=== PATIENT | female | born 1950 | race Caucasian/White ===

== ENCOUNTER 2016-12-17 13:24 | Emergency (ER) | payer MEDICARE, MEDICAID ==
[2016-12-17 13:24] VITALS: BMI 45.0
[2016-12-17 13:47] VITALS: TEMP 98.4
[2016-12-17] MEDS ORDERED: Sodium Chloride 0.9% 1,000 ML IV ONE (14:24)
[2016-12-17] MEDS ORDERED: Albuterol-Ipratrop 3 mg / 0.5 (3 ml) UD INH STA ×3 (14:26→18:02)
--- NOTE | 2016-12-17 15:10 | RAD ---
HISTORY: SOB COMPARISON: Chest x-ray performed 02/13/16 TECHNIQUE: Chest, one view. FINDINGS: Examination limited by habitus. LUNGS: Mild to moderate pulmonary venous congestion. No focal consolidation. Please note that chest x-ray has limited sensitivity for the detection of pulmonary masses. PLEURA: No significant pleural effusion identified. No definite pneumothorax . CARDIOVASCULAR: Cardiomegaly. Since atherosclerotic calcifications of the aorta. OSSEOUS STRUCTURES: Degenerative changes. VISUALIZED UPPER ABDOMEN: Unremarkable. OTHER FINDINGS: None. IMPRESSION: Cardiomegaly. Mild to moderate pulmonary venous congestion.
--- NOTE | 2016-12-17 15:43 | C.PDOC ---
History Of Present Illness Patient is a 66 y/o female, whose past medical history includes asthma, presents to the emergency department for evaluation of shortness of breath associated with productive cough, and bilateral leg swelling for the last 8 days. Notes using nebulizer at home with transient relief. Otherwise, denies any fever, chills, chest pain, palpitations, lightheadedness, headache, dizziness, or any other associated symptoms at this time. Time Seen by Provider: 12/17/16 14:14 Chief Complaint (Nursing): Shortness Of Breath History Per: Patient History/Exam Limitations: no limitations Onset/Duration Of Symptoms: Days (8) Current Symptoms Are (Timing): Still Present Severity: None Pain Scale Rating Of: 0 Associated Symptoms: Productive Cough, Ankle/Leg Swelling. denies: Fever, Chills, Sweating, Chest Pain, Bloody Cough, Heart Racing, Leg/Calf Pain, Dizziness, Light-headedness, Anxiety, Tingling In Hands Or Face, Musle Spasms In Hands Or Feet Recent travel outside of the [place]: No Additional History Per: Patient Past Medical History Reviewed: Historical Data, Nursing Documentation, Vital Signs Vital Signs: Last Vital Signs Temp 98.4 F 12/17/16 18:38 Pulse 93 H 12/17/16 18:38 Resp 22 12/17/16 18:38 BP 134/86 12/17/16 18:38 Pulse Ox 96 12/17/16 18:55 - Medical History PMH: Asthma, Diabetes, HTN, Hypercholesterolemia Denies: Chronic Kidney Disease Surgical History: Appendectomy Family History: States: Unknown Family Hx - Social History Hx Tobacco Use: No (Quit years ago) Hx Alcohol Use: No Hx Substance Use: No - Immunization History Hx Tetanus Toxoid Vaccination: No Hx Influenza Vaccination: Yes Hx Pneumococcal Vaccination: No Review Of Systems Except As Marked, All Systems Reviewed And Found Negative. Constitutional: Negative for: Fever, Chills Cardiovascular: Positive for: Edema (BL leg swelling). Negative for: Chest Pain , Palpitations, Light Headedness Respiratory: Positive for: Cough, Shortness of Breath. Negative for: Hemoptysis , Pleuritic Pain, Sputum Gastrointestinal: Negative for: Nausea, Vomiting Skin: Negative for: Rash Neurological: Negative for: Headache, Dizziness Physical Exam - Physical Exam Appears: Non-toxic, In Acute Distress (mild resp distress), Other (obese) Skin: Normal Color, Warm, Dry Head: Atraumatic, Normacephalic Eye(s): bilateral: Normal Inspection, EOMI Nose: Normal Oral Mucosa: Moist Throat: Normal, No Erythema, No Exudate Neck: Normal ROM, Supple Chest: Symmetrical Cardiovascular: Rhythm Regular, No Murmur Respiratory: No Rales, No Rhonchi, Wheezing (BL) Gastrointestinal/Abdominal: Soft, No Tenderness Extremity: Normal ROM, Pedal Edema (b/l mild), Capillary Refill (< 2 sec.), No Deformity Extremity: Bilateral: Atraumatic Pulses: Left Dorsalis Pedis: Normal, Right Dorsalis Pedis: Normal Neurological/Psych: Oriented x3, Normal Speech ED Course And Treatment - Laboratory Results Result Diagrams: 12/17/16 16:07 12/17/16 16:07 ECG: Interpreted By Me (Dr Huber and me), Viewed By Me ECG Rhythm: Atrial Fibrillation ECG Interpretation: No Changes From Prior (A flutter on previous EKG) Rate From EC O2 Sat by Pulse Oximetry: 96 (on RA) Pulse Ox Interpretation: Normal Progress Note: Blood work, urinalysis, EKG, CXR ordered and reviewed. Patient was given IV fluids, Solu-Medrol, and treated with Albuterol. On reassessment, patient is resting comfortably with wheezing improved. No chest pain, or retractions. Oxygen saturation remains stable. Some wheezing persists. It was recommeneded that be admitted for obs. Pt refused. Pt notes she has treatment at home and feels much better. at bedside noting he will bring her back if symptoms return. Pt was informed this is against medical advise, pt a&o x 3 and understands the risks of deterioration, disability and . Cse discsused with Dr Tavares, agreed upon plan and discharge. Medical Decision Making Medical Decision Making: The patient declines admission, and wishes to leave the Emergency Department. ~ This action is against my medical advice to the patient and the decision was made with informed refusal. The patient was told that admission is necessary and a full explanation of the rationale was given. ~The risks of leaving were explained to the patient and include, but are not limited to, worsening of known or currently unknown conditions, permanent disability and from undiagnosed or untreated conditions ~The patient has the capacity to make this informed decision and understands the clinical situation and my explanation of the risks of leaving. The patient voluntarily accepts these risks, and a signed AMA form documenting our conversation was obtained. The patient was given the opportunity to ask questions and reconsider. ~The patient was encouraged to return to the Emergency Department at any time for further care. Disposition - Disposition Referrals: Jh Jolley MD [Staff Provider] - Disposition: HOME/ ROUTINE Disposition Time: 17:36 Condition: STABLE Additional Instructions: Vaya a lawler mdico o la clnica en 2-5 calles sin falta, para mas evaluacin. [place] los medicamentos jose indicado. Volver a la tran de emergencia en cualquier momento si los sntomas persisten o empeoran. Prescriptions: Albuterol 0.083% [Albuterol 0.083% Inhal Destinee (2.5 mg/3 ml) UD] 2.5 mg IH Q6 PRN #20 neb PRN Reason: Shortness Of Breath Methylprednisolone [Medrol Dose Pack (21 tabs)] 4 mg PO DAILY #21 mg Instructions: Asthma (ED) Forms: (AMA) Informed Refusal Print Language: KHMER - Clinical Impression Clinical Impression: Exacerbation of asthma - PA / METAL POURER / Resident Statement MD/DO has reviewed & agrees with the documentation as recorded. - Scribe Statement The provider has reviewed the documentation as recorded by the Steveibkady Francisco All medical record entries made by the Scribe were at my direction and personally dictated by me. I have reviewed the chart and agree that the record accurately reflects my personal performance of the history, physical exam, medical decision making, and the department course for this patient. I have also personally directed, reviewed, and agree with the discharge instructions and disposition.
[2016-12-17] MEDS ORDERED: Albuterol-Ipratrop 3 mg / 0.5 (3 ml) UD ONE ×4 (16:08→17:51)
[2016-12-17] MEDS ORDERED: Sodium Chloride 0.9% 1,000 ML ONE (16:09)
[2016-12-17 16:14] LABS: BASO # 0.1 K/uL (0.0-0.2); BASO % 0.7 % (0.0-2.0); EOS # 1.6 K/uL (0.0-0.7); EOS % 14.4 % (0.0-4.0); HEMOGLOBIN 10.9 g/dL (11.0-16.0); LYMPH # 2.5 K/uL (1.0-4.3); LYMPH % 23.2 % (20.0-40.0); MEAN CELL VOLUME 80.1 fL (81.0-99.0); MEAN CORPUSCULAR HEMOGLOBIN 24.7 pg (27.0-31.0); MEAN CORPUSCULAR HGB CONC 30.8 g/dL (33.0-37.0); MEAN PLATELET VOLUME 7.9 fL (7.2-11.7); MONO # 0.6 K/uL (0.0-0.8); NEUT % 55.7 % (50.0-75.0); NRBC % 0.1 % (0.0-2.0); RBC 4.42 Mil/uL (3.80-5.20); RED CELL DISTRIBUTION WIDTH 16.6 % (11.5-14.5); WHITE BLOOD COUNT 10.8 K/uL (4.8-10.8)
[2016-12-17 16:22] LABS: ALBUMIN 3.2 g/dL (3.5-5.0)
[2016-12-17 16:25] LABS: AST/SGOT 15 U/L (14-36); GFR AFRICAN-AMERICAN > 60; GFR NON-AFRICAN AMERICAN > 60
[2016-12-17 16:26] LABS: ALB/GLOB RATIO 0.9 (1.0-2.1); ALT/SGPT 17 U/L (9-52); BLOOD UREA NITROGEN 17 mg/dL (7-17); CALCIUM 8.7 mg/dl (8.6-10.4)
[2016-12-17 16:34] LABS: B-TYPE NATRIURETIC PEPTIDE 453 pg/mL (0-900); CK-MB 0.42 ng/mL (0.0-3.38)
[2016-12-17 18:40] VITALS: BP 134/86; PULSE 93; RESP 22
[2016-12-17 18:56] VITALS: O2SAT 96
--- NOTE | 2016-12-18 12:59 | CARD ---
APPROVED REPORT EKG Measurement Heart [id number] <Conclusion> Atrial fibrillation Nonspecific ST and T wave abnormality Abnormal ECG
== END 2016-12-17 18:43 | disposition home or self-care (01) ==
LOC: C.ER 13:24
DX: J45.901 Unspecified asthma with (acute) exacerbation (principal); Z87.891 Personal history of nicotine dependence
CPT/HCPCS: 71010; 80053; 82550; 82553; 83880; 84484; 85025; 93005; 94150; 94640; 96361; 96374; 99284; J2930; J7040

== ENCOUNTER 2017-03-22 18:06 | Inpatient (IN) | payer MEDICARE, MEDICAID ==
[2017-03-22 18:06] VITALS: BMI 45.0
[2017-03-22] MEDS ORDERED: Albuterol-Ipratrop 3 mg / 0.5 (3 ml) UD ONE (18:20)
[2017-03-22] MEDS ORDERED: Albuterol 0.083% Inhal Sol (2.5 mg/3 mL) UD INH STA ×2 (20:07→21:22)
--- NOTE | 2017-03-22 20:11 | C.PDOC ---
History Of Present Illness 66 year old female with prior Hx of asthma and diabetes presents to the ED with complaints of trouble breathing that have been occurring approximately for 7 days.Patient is currently taking medication for asthma and HTN. Patient states trying her asthma medication three time A P MANAGER with no success. She states having a cough, with little phlegm associated with her breathing problems. Patient denies fever, nausea, vomit, CP, or known sick contacts. PMD : Shola Bae Time Seen by Provider: 03/22/17 19:45 Chief Complaint (Nursing): Shortness Of Breath History Per: Patient History/Exam Limitations: no limitations Onset/Duration Of Symptoms: Days Current Symptoms Are (Timing): Still Present Initiating Event: Aspiration Quality: "Pain" Current Respiratory Medications: Albuterol Associated Symptoms: Productive Cough (Mild), Ankle/Leg Swelling. denies: Fever , Chills, Chest Pain, Dizziness Recent travel outside of the [place]: No Additional History Per: Patient Past Medical History Reviewed: Historical Data, Nursing Documentation, Vital Signs Vital Signs: Last Vital Signs Temp 97.9 F 03/22/17 18:30 Pulse 84 03/22/17 23:11 Resp 17 03/22/17 23:11 BP 140/80 03/22/17 23:11 Pulse Ox 96 03/22/17 23:11 - Medical History PMH: Asthma, Bronchitis, Diabetes, HTN, Hypercholesterolemia Denies: Chronic Kidney Disease Surgical History: Appendectomy Family History: States: Unknown Family Hx - Social History Hx Tobacco Use: No (Quit years ago) Hx Alcohol Use: No Hx Substance Use: No - Immunization History Hx Tetanus Toxoid Vaccination: No Hx Influenza Vaccination: Yes Hx Pneumococcal Vaccination: No Review Of Systems Constitutional: Negative for: Fever, Chills Cardiovascular: Negative for: Chest Pain Respiratory: Positive for: Cough, Shortness of Breath Gastrointestinal: Negative for: Nausea, Vomiting, Abdominal Pain Neurological: Negative for: Weakness, Numbness Physical Exam - Physical Exam Appears: Non-toxic, In Acute Distress (Mild respiratory, speaking partial sentences) Skin: Normal Color, Warm, Dry Head: Atraumatic, Normacephalic Oral Mucosa: Moist Neck: Normal, Supple Chest: Symmetrical Cardiovascular: No Murmur, Other (Resting tachycardia) Respiratory: No Wheezing (Diffuse inspiratory and expiratory), Other (Good air movement) Gastrointestinal/Abdominal: Bowel Sounds, Soft, No Tenderness Back: Normal Inspection Extremity: Normal ROM, Pedal Edema, Capillary Refill (less than 2 seconds), No Deformity Pulses: Left Radial: Normal, Right Radial: Normal, Left Dorsalis Pedis: Normal, Right Dorsalis Pedis: Normal Neurological/Psych: Oriented x3, Normal Speech, Normal Cognition Gait: Steady ED Course And Treatment - Laboratory Results Result Diagrams: 03/22/17 20:22 03/22/17 20:22 ECG: Interpreted By Me, Viewed By Me ECG Rhythm: Atrial Fibrillation ECG Interpretation: No Acute Changes Interpretation Of ECG: No acute ST-T changes, no old EKG for comparisson. Rate From EC O2 Sat by Pulse Oximetry: 95 (On RA) Medical Decision Making Medical Decision Making: Impression : 66 y/o female with prior Hx of asthma, diabetes and HTN. Plan : * EKG ordered * CXR ordered * Albuterol, Prednisone, IV fluids administered * Peak flow Pre/Post TX ordered Asthma vs Pneumonia vs CHF. Patient was given nebulizer, steriods, will check blood work, CXR and reevaluate. Disposition - Disposition Disposition: HOSPITALIZED Disposition Time: 22:37 Condition: FAIR - POA Present On Arrival: None - Clinical Impression Clinical Impression: Asthma exacerbation - Scribe Statement The provider has reviewed the documentation as recorded by the Scribe Dave Aparicio All medical record entries made by the Scribe were at my direction and personally dictated by me. I have reviewed the chart and agree that the record accurately reflects my personal performance of the history, physical exam, medical decision making, and the department course for this patient. I have also personally directed, reviewed, and agree with the discharge instructions and disposition.
[2017-03-22 20:26] LABS: BASO % 0.4 % (0.0-2.0); EOS # 0.5 K/uL (0.0-0.7); HEMATOCRIT 37.8 % (34.0-47.0); LYMPH # 2.6 K/uL (1.0-4.3); LYMPH % 29.2 % (20.0-40.0); MEAN CELL VOLUME 80.1 fL (81.0-99.0); MEAN CORPUSCULAR HEMOGLOBIN 25.1 pg (27.0-31.0); MEAN CORPUSCULAR HGB CONC 31.4 g/dL (33.0-37.0); MEAN PLATELET VOLUME 7.4 fL (7.2-11.7); MONO # 0.6 K/uL (0.0-0.8); MONO % 6.5 % (0.0-10.0); WHITE BLOOD COUNT 8.9 K/uL (4.8-10.8)
[2017-03-22] MEDS ORDERED: Albuterol 0.083% Inhal Sol (2.5 mg/3 mL) UD ONE ×2 (20:29→21:34)
[2017-03-22 20:35] LABS: CHLORIDE 100 mmol/L (98-107); SODIUM 134 mmol/L (132-148)
[2017-03-22 20:36] LABS: POTASSIUM 4.2 mmol/L (3.6-5.2)
[2017-03-22 20:38] LABS: ALB/GLOB RATIO 1.1 (1.0-2.1); ALKALINE PHOSPHATASE 80 U/L (38-126); AST/SGOT 15 U/L (14-36); BILIRUBIN,TOTAL 0.5 mg/dL (0.2-1.3); BLOOD UREA NITROGEN 18 mg/dL (7-17); CARBON DIOXIDE 24 mmol/L (22-30); GFR AFRICAN-AMERICAN > 60; GLUCOSE,RANDOM 111 mg/dL (65-105); TOTAL PROTEIN 7.4 g/dL (6.3-8.3)
[2017-03-22 20:39] LABS: ALT/SGPT 22 U/L (9-52); CALCIUM 9.2 mg/dl (8.6-10.4)
--- NOTE | 2017-03-22 23:05 | CP.PCM.HP ---
Addendum entered and electronically signed by Dagmar Orourke DO 03/22/17 23:40: pharmacy does not have levoquin Patient placed on Rocephin 1 gm IV QD and Azithromycin 500mg IV QD Original Note: History of Present Illness - History of Present Illness History of Present Illness: History and physical for Frances 66F presents with asthma exacerbation which began 7 days ago associated with phelgm production. Patient states she has been hospitalized in the past for the same symptoms. Patient stated she's tried her home medication for asthma, but it did not help. Patient denies Fever, chills, chest pain. Patient denies sick contacts. Patient states she feels a little bit better since arriving to ER. PMH: HTN, DM PSH: peritonitis, , hernia repair Social history: smoker for 9 years 1 cigarette every 2 days. no alcohol or illicit drugs Allergies: pollen Present on Admission - Present on Admission Any Indicators Present on Admission: No History of DVT/PE: No History of Uncontrolled Diabetes: No Urinary Catheter: No Decubitus Ulcer Present: No Past Patient History - Infectious Disease Hx of Infectious Diseases: None - Past Medical History & Family History Past Medical History?: Yes - Past Social History Smoking Status: Former Smoker - CARDIAC Hx Hypercholesterolemia: Yes Hx Hypertension: Yes - PULMONARY Hx Asthma: Yes Hx Bronchitis: Yes - NEUROLOGICAL Hx Neurological Disorder: No - HEENT Hx HEENT Problems: No - RENAL Hx Chronic Kidney Disease: No - ENDOCRINE/METABOLIC Hx Endocrine Disorders: Yes Hx Diabetes Mellitus Type 2: Yes - HEMATOLOGICAL/ONCOLOGICAL Hx Blood Disorders: No - INTEGUMENTARY Hx Dermatological Problems: No - MUSCULOSKELETAL/RHEUMATOLOGICAL Hx Musculoskeletal Disorders: No - GASTROINTESTINAL Hx Gastrointestinal Disorders: Yes Other/Comment: peritonitis - GENITOURINARY/GYNECOLOGICAL Hx Genitourinary Disorders: No - PSYCHIATRIC Hx Substance Use: No - SURGICAL HISTORY Hx Appendectomy: Yes - ANESTHESIA Hx Anesthesia: Yes Hx Anesthesia Reactions: No Hx Malignant Hyperthermia: No Meds Allergies/Adverse Reactions: Allergies Allergy/AdvReac Type Severity Reaction Status Date / Time pollen Allergy SHORTNESS Uncoded 03/22/17 18:28 OF BREATH Physical Exam - Constitutional Appears: Non-toxic - Head Exam Head Exam: NORMAL INSPECTION - Eye Exam Eye Exam: EOMI, Normal appearance - ENT Exam ENT Exam: Mucous Membranes Moist - Neck Exam Neck exam: Positive for: Full Rom - Respiratory Exam Respiratory Exam: Accessory Muscle Use, Decreased Breath Sounds, Respiratory Distress - Cardiovascular Exam Cardiovascular Exam: REGULAR RHYTHM, +S1, +S2. absent: Bradycardia, Tachycardia - GI/Abdominal Exam GI & Abdominal Exam: Soft. absent: Tenderness Additional comments: Patient has scars from previous surgeries - Extremities Exam Extremities exam: Positive for: full ROM, pedal edema Additional comments: pain in left foot. Pulses palpable (DP and PT bilaterally 2+) Full ROM bilaterally Results - Vital Signs Recent Vital Signs: Last Vital Signs Temp 97.9 F 03/22/17 18:30 Pulse 99 H 03/22/17 18:30 Resp 26 H 03/22/17 18:33 BP 139/89 03/22/17 18:30 Pulse Ox 95 03/22/17 22:38 - Labs Result Diagrams: 03/22/17 20:22 03/22/17 20:22 Labs: Laboratory Results - last 24 hr 03/22/17 03/22/17 20:22 20:22 WBC 8.9 RBC 4.72 Hgb 11.9 Hct 37.8 MCV 80.1 L MCH 25.1 L MCHC 31.4 L RDW 16.0 H Plt Count 240 MPV 7.4 Neut % (Auto) 57.9 Lymph % (Auto) 29.2 [place] % (Auto) 6.5 Eos % (Auto) 6.0 H Baso % (Auto) 0.4 Neut # 5.1 Lymph # 2.6 [place] # 0.6 Eos # 0.5 Baso # 0.0 Sodium 134 Potassium 4.2 Chloride 100 Carbon Dioxide 24 Anion Gap 14 BUN 18 H Creatinine 0.9 Est GFR ( Amer) > 60 Est GFR (Non-Af Amer) > 60 Random Glucose 111 H Calcium 9.2 Total Bilirubin 0.5 AST 15 ALT 22 Alkaline Phosphatase 80 Troponin I < 0.0120 NT-Pro-B Natriuret Pep 517 Total Protein 7.4 Albumin 3.9 Globulin 3.6 Albumin/Globulin Ratio 1.1 Assessment & Plan - Assessment and Plan (Free Text) Assessment: asthma exacerbation Levoquin 750 IVQD Duoneb Q4H JB Duoneb Q2H PRN HTN continue home medication Diabetes Low dose SS ACHS Accuchecks Prophylaxis Protonix 50mg POQD Lovenox 40mg IV QD diet: carb consistent diabetic diet discussed with Dr. Frances Orourke DO PGY1 - Date & Time Date: 03/22/17 Time: 23:06
[2017-03-22] MEDS ORDERED: Glucagon Recombinant 1 mg Inj IM PRN ×2 (23:11→23:34)
[2017-03-22] MEDS ORDERED: Dextrose 50% SYRINGE Inj (50 ml) IVP PRN ×2 (23:11→23:34)
[2017-03-22] MEDS ORDERED: Albuterol 0.083% Inhal Sol (2.5 mg/3 mL) UD INH PRN (23:11)
[2017-03-22] MEDS: Sodium Chloride 0.9% 1,000 ML IV SCH (23:30)
[2017-03-23] MEDS: MethylPREDNISolone 40 mg Vial IVP SCH ×3 (00:13→22:41)
[2017-03-23] MEDS ORDERED: MethylPREDNISolone 40 mg Vial ONE (00:16)
[2017-03-23] MEDS: Albuterol-Ipratrop 3 mg / 0.5 (3 ml) UD INH SCH ×7 (00:18→23:35)
[2017-03-23] MEDS ORDERED: Albuterol-Ipratrop 3 mg / 0.5 (3 ml) UD ONE (00:21)
[2017-03-23] MEDS: guaiFENesin 100 mg/5 ml Syrup UD PO PRN (03:00)
[2017-03-23 07:25] LABS: BASO % 0.2 % (0.0-2.0); EOS % 0.1 % (0.0-4.0); HEMATOCRIT 35.9 % (34.0-47.0); LYMPH # 1.6 K/uL (1.0-4.3); LYMPH % 23.9 % (20.0-40.0); MEAN CELL VOLUME 80.1 fL (81.0-99.0); MEAN CORPUSCULAR HEMOGLOBIN 25.6 pg (27.0-31.0); MEAN CORPUSCULAR HGB CONC 31.9 g/dL (33.0-37.0); MONO # 0.1 K/uL (0.0-0.8); MONO % 1.3 % (0.0-10.0); RED CELL DISTRIBUTION WIDTH 15.8 % (11.5-14.5); WHITE BLOOD COUNT 6.9 K/uL (4.8-10.8)
[2017-03-23 08:07] LABS: CHLORIDE 100 mmol/L (98-107); POTASSIUM 4.7 mmol/L (3.6-5.2); SODIUM 133 mmol/L (132-148)
[2017-03-23 08:09] LABS: AST/SGOT 14 U/L (14-36); BILIRUBIN,TOTAL 0.4 mg/dL (0.2-1.3); CARBON DIOXIDE 25 mmol/L (22-30); GFR AFRICAN-AMERICAN > 60; TOTAL PROTEIN 7.2 g/dL (6.3-8.3)
[2017-03-23 08:10] VITALS: RESP 20
[2017-03-23 08:10] LABS: ALKALINE PHOSPHATASE 76 U/L (38-126); ALT/SGPT 21 U/L (9-52); BLOOD UREA NITROGEN 17 mg/dL (7-17); CALCIUM 9.1 mg/dl (8.6-10.4); GLUCOSE,RANDOM 163 mg/dL (65-105); MAGNESIUM 1.3 mg/dL (1.6-2.3); PHOSPHOROUS 3.9 mg/dL (2.5-4.5)
[2017-03-23] MEDS: (Novolog) Insulin Aspart, Recombinant 100 u/ml 10 ml vial SC SCH ×4 (08:35→21:46)
[2017-03-23] MEDS: cefTRIAXone IV 1 gm in Dextros 50 ML IVPB SCH (11:36)
[2017-03-23] MEDS: Pantoprazole 40 mg EC Tab PO SCH (11:48)
[2017-03-23] MEDS: Sodium Chloride 0.9% 1,000 ML IV SCH ×2 (11:49→19:15)
[2017-03-23] MEDS: Azithromycin 500 MG in Sodium Chloride 0.9% 250 ML IVPB SCH (11:50)
--- NOTE | 2017-03-23 15:06 | RAD ---
PROCEDURE: CHEST RADIOGRAPH, 1 VIEW HISTORY: SOB COMPARISON: Comparison chest 12/17/2016 FINDINGS: LUNGS: The lung bases are poorly seen likely due to underpenetration and large body habitus. Suspect mild bibasilar atelectasis. PLEURA: No pneumothorax or pleural fluid seen. CARDIOVASCULAR: Heart appears enlarged. OSSEOUS STRUCTURES: Mild multilevel degenerative spondylosis of the thoracic spine VISUALIZED UPPER ABDOMEN: Normal. OTHER FINDINGS: None. IMPRESSION: The lung bases are poorly seen likely due to underpenetration and large body habitus. Suspect mild bibasilar atelectasis.
[2017-03-23] MEDS: Magnesium Sulfate 1 gm in D5W 1 GM/100 ML BAG IVPB SCH ×2 (21:35→22:42)
--- NOTE | 2017-03-23 22:52 | CP.PCM.HP ---
History of Present Illness - History of Present Illness History of Present Illness: CC: shortness of breath 66F presents with asthma exacerbation which began 7 days ago associated with phelgm production. Patient states she has been hospitalized in the past for the same symptoms. Patient stated she's tried her home medication for asthma, but it did not help. Patient denies Fever, chills, chest pain. Patient denies sick contacts. Patient states she feels a little bit better since arriving to ER. PMH: HTN, DM PSH: peritonitis, , hernia repair Social history: smoker for 9 years 1 cigarette every 2 days. no alcohol or illicit drugs Allergies: pollen Present on Admission - Present on Admission Any Indicators Present on Admission: No Past Patient History - Infectious Disease Hx of Infectious Diseases: None - Past Medical History & Family History Past Medical History?: Yes - Past Social History Smoking Status: Never Smoked - CARDIAC Hx Hypercholesterolemia: Yes Hx Hypertension: Yes - PULMONARY Hx Asthma: Yes Hx Bronchitis: Yes - NEUROLOGICAL Hx Neurological Disorder: No - HEENT Hx HEENT Problems: No - RENAL Hx Chronic Kidney Disease: No - ENDOCRINE/METABOLIC Hx Endocrine Disorders: Yes Hx Diabetes Mellitus Type 2: Yes - HEMATOLOGICAL/ONCOLOGICAL Hx Blood Disorders: No - INTEGUMENTARY Hx Dermatological Problems: No - MUSCULOSKELETAL/RHEUMATOLOGICAL Hx Falls: No - GASTROINTESTINAL Hx Gastrointestinal Disorders: Yes Other/Comment: peritonitis - GENITOURINARY/GYNECOLOGICAL Hx Genitourinary Disorders: No - PSYCHIATRIC Hx Substance Use: No - SURGICAL HISTORY Hx Appendectomy: Yes Other/Comment: no further information added by patient. - ANESTHESIA Hx Anesthesia: Yes Hx Anesthesia Reactions: No Hx Malignant Hyperthermia: No Meds Allergies/Adverse Reactions: Allergies Allergy/AdvReac Type Severity Reaction Status Date / Time pollen Allergy SHORTNESS Uncoded 03/22/17 18:28 OF BREATH Results - Vital Signs Recent Vital Signs: Last Vital Signs Temp 97.8 F 03/23/17 15:32 Pulse 96 H 03/23/17 15:32 Resp 20 03/23/17 15:32 BP 133/78 03/23/17 17:56 Pulse Ox 97 03/23/17 15:32 - Labs Result Diagrams: 03/24/17 08:43 03/24/17 08:43 Labs: Laboratory Results - last 24 hr 03/23/17 03/23/17 03/23/17 02:36 06:59 07:17 WBC 6.9 RBC 4.48 Hgb 11.4 Hct 35.9 MCV 80.1 L MCH 25.6 L MCHC 31.9 L RDW 15.8 H Plt Count 236 MPV 8.0 Neut % (Auto) 74.5 Lymph % (Auto) 23.9 [place] % (Auto) 1.3 Eos % (Auto) 0.1 Baso % (Auto) 0.2 Neut # 5.1 Lymph # 1.6 [place] # 0.1 Eos # 0.0 Baso # 0.0 Sodium Potassium Chloride Carbon Dioxide Anion Gap BUN Creatinine Est GFR ( Amer) Est GFR (Non-Af Amer) POC Glucose (mg/dL) 226 H 183 H Random Glucose Calcium Phosphorus Magnesium Total Bilirubin AST ALT Alkaline Phosphatase Total Protein Albumin Globulin Albumin/Globulin Ratio 03/23/17 03/23/17 03/23/17 07:17 11:35 17:47 WBC RBC Hgb Hct MCV MCH MCHC RDW Plt Count MPV Neut % (Auto) Lymph % (Auto) [place] % (Auto) Eos % (Auto) Baso % (Auto) Neut # Lymph # [place] # Eos # Baso # Sodium 133 Potassium 4.7 Chloride 100 Carbon Dioxide 25 Anion Gap 14 BUN 17 Creatinine 0.8 Est GFR ( Amer) > 60 Est GFR (Non-Af Amer) > 60 POC Glucose (mg/dL) 221 H 181 H Random Glucose 163 H Calcium 9.1 Phosphorus 3.9 Magnesium 1.3 L Total Bilirubin 0.4 AST 14 ALT 21 Alkaline Phosphatase 76 Total Protein 7.2 Albumin 3.7 Globulin 3.5 Albumin/Globulin Ratio 1.0 03/23/17 21:43 WBC RBC Hgb Hct MCV MCH MCHC RDW Plt Count MPV Neut % (Auto) Lymph % (Auto) [place] % (Auto) Eos % (Auto) Baso % (Auto) Neut # Lymph # [place] # Eos # Baso # Sodium Potassium Chloride Carbon Dioxide Anion Gap BUN Creatinine Est GFR ( Amer) Est GFR (Non-Af Amer) POC Glucose (mg/dL) 169 H Random Glucose Calcium Phosphorus Magnesium Total Bilirubin AST ALT Alkaline Phosphatase Total Protein Albumin Globulin Albumin/Globulin Ratio
[2017-03-24] MEDS: Magnesium Sulfate 1 gm in D5W 1 GM/100 ML BAG IVPB SCH ×2 (00:01)
[2017-03-24] MEDS: Sodium Chloride 0.9% 1,000 ML IV SCH ×2 (00:02→05:20)
[2017-03-24] MEDS: Albuterol-Ipratrop 3 mg / 0.5 (3 ml) UD INH SCH ×6 (03:05→23:34)
[2017-03-24] MEDS: guaiFENesin 100 mg/5 ml Syrup UD PO PRN (05:46)
[2017-03-24] MEDS: (Novolog) Insulin Aspart, Recombinant 100 u/ml 10 ml vial SC SCH ×4 (07:56→22:02)
[2017-03-24 08:52] LABS: BASO % 0.1 % (0.0-2.0); EOS % 0.1 % (0.0-4.0); HEMATOCRIT 34.1 % (34.0-47.0); LYMPH % 16.4 % (20.0-40.0); MEAN CELL VOLUME 80.5 fL (81.0-99.0); MEAN PLATELET VOLUME 8.3 fL (7.2-11.7); MONO # 0.3 K/uL (0.0-0.8); MONO % 2.8 % (0.0-10.0); NRBC % 0.1 % (0.0-2.0); RED CELL DISTRIBUTION WIDTH 16.1 % (11.5-14.5)
[2017-03-24 08:57] LABS: WHITE BLOOD COUNT 12.2 K/uL (4.8-10.8)
[2017-03-24 09:19] LABS: CHLORIDE 98 mmol/L (98-107); POTASSIUM 4.9 mmol/L (3.6-5.2); SODIUM 132 mmol/L (132-148)
[2017-03-24 09:21] LABS: AST/SGOT 10 U/L (14-36); BILIRUBIN,TOTAL 0.4 mg/dL (0.2-1.3); CARBON DIOXIDE 23 mmol/L (22-30); GFR AFRICAN-AMERICAN > 60; TOTAL PROTEIN 6.8 g/dL (6.3-8.3)
[2017-03-24 09:22] LABS: ALKALINE PHOSPHATASE 67 U/L (38-126); BLOOD UREA NITROGEN 24 mg/dL (7-17); GLUCOSE,RANDOM 202 mg/dL (65-105); PHOSPHOROUS 3.9 mg/dL (2.5-4.5)
[2017-03-24 09:23] LABS: ALT/SGPT 16 U/L (9-52); CALCIUM 8.7 mg/dl (8.6-10.4); MAGNESIUM 2.1 mg/dL (1.6-2.3)
[2017-03-24] MEDS: guaiFENesin DM 100 mg-10 mg/5 ml UD PO PRN ×2 (09:26→14:03)
[2017-03-24] MEDS: Pantoprazole 40 mg EC Tab PO SCH (09:27)
[2017-03-24] MEDS: cefTRIAXone IV 1 gm in Dextros 50 ML IVPB SCH (09:32)
[2017-03-24] MEDS: Azithromycin 500 MG in Sodium Chloride 0.9% 250 ML IVPB SCH (09:33)
[2017-03-24] MEDS: Fluticasone Nasal 50 mcg/Spray NS SCH (11:00)
[2017-03-24] MEDS: MethylPREDNISolone 40 mg Vial IVP SCH (12:30)
--- NOTE | 2017-03-24 21:07 | CP.PCM.PN ---
Subjective - Date & Time of Evaluation Date of Evaluation: 03/24/17 Time of Evaluation: 16:25 - Subjective Subjective: Pt seen and evalauted at bedside, he denies any nausea, vomiting, no fever. Pt is less short of breath, less coughing,, less wheezing Objective - Vital Signs/Intake and Output Vital Signs (last 24 hours): Temp Pulse Resp BP Pulse Ox 97.6 F 99 H 20 143/100 H 96 03/24/17 15:23 03/24/17 15:23 03/24/17 15:23 03/24/17 18:19 03/24/17 15:23 - Medications Medications: Current Medications Acetaminophen (Tylenol 325mg Tab) 650 mg PO Q6 PRN PRN Reason: Fever >100.4 F Albuterol Sulfate (Albuterol 0.083% Inhal Destinee (2.5 Mg/3 Ml) Ud) 3 mg INH RQ2 PRN PRN Reason: Shortness of Breath Albuterol/Ipratropium (Duoneb 3 Mg/0.5 Mg (3 Ml) Ud) 3 ml INH RQ4 JB Last Admin: 03/24/17 19:52 Dose: 3 ml Carvedilol (Coreg) 25 mg PO BID JB Last Admin: 03/24/17 18:19 Dose: 25 mg Dextrose (Dextrose 50% Inj) 0 ml IVP .STAT PRN; Protocol PRN Reason: Hypoglycemia Protocol Dextrose (Glutose 15) 0 gm PO .ONCE PRN; Protocol PRN Reason: Hypoglycemia Protocol Fluticasone Propionate (Flonase) 2 spr NS DAILY JB Last Admin: 03/24/17 11:00 Dose: 2 spr Glimepiride (Amaryl) 1 mg PO DAILY JB Last Admin: 03/24/17 09:33 Dose: 1 mg Glucagon (Glucagen Diagnostic Kit) 0 mg IM .STAT PRN; Protocol PRN Reason: Hypoglycemia Protocol Guaifenesin (Robitussin) 100 mg PO Q4H PRN PRN Reason: Cough Last Admin: 03/24/17 05:46 Dose: 100 mg Guaifenesin/Dextromethorphan (Robitussin Dm) 5 ml PO Q4H PRN PRN Reason: Cough Last Admin: 03/24/17 14:03 Dose: 5 ml Heparin Sodium (Porcine) (Heparin) 5,000 units SC Q12 JB Last Admin: 03/24/17 09:27 Dose: 5,000 units Azithromycin 500 mg/ Sodium (Chloride) 250 mls @ 250 mls/hr IVPB DAILY [facility] Last Admin: 03/24/17 09:33 Dose: 250 mls/hr Ceftriaxone Sodium (Rocephin Iv 1 Gm Duplex) 50 mls @ 100 mls/hr IVPB DAILY [facility] Last Admin: 03/24/17 09:32 Dose: 100 mls/hr Insulin Aspart (Novolog) 0 unit SC ACHS [facility] PRN Reason: Protocol Last Admin: 03/24/17 18:00 Dose: Not Given Metformin HCl (Glucophage) 1,000 mg PO BID [facility] Last Admin: 03/24/17 18:20 Dose: 1,000 mg Methylprednisolone (Solu-Medrol) 60 mg IVP DAILY [facility] Montelukast Sodium (Singulair) 10 mg PO HS [facility] Last Admin: 03/23/17 21:35 Dose: 10 mg Pantoprazole Sodium (Protonix Ec Tab) 40 mg PO DAILY [facility] Last Admin: 03/24/17 09:27 Dose: 40 mg Rosuvastatin Calcium (Crestor) 10 mg PO HS [facility] Last Admin: 03/23/17 21:35 Dose: 10 mg - Labs Labs: 03/24/17 08:43 03/24/17 08:43 - Constitutional Appears: No Acute Distress - Head Exam Head Exam: ATRAUMATIC, NORMAL INSPECTION, NORMOCEPHALIC - Eye Exam Eye Exam: EOMI, Normal appearance, PERRL Pupil Exam: NORMAL ACCOMODATION, PERRL - Respiratory Exam Respiratory Exam: Decreased Breath Sounds, Rales, Rhonchi, Wheezes - Cardiovascular Exam Cardiovascular Exam: REGULAR RHYTHM, +S1, +S2. absent: Murmur - GI/Abdominal Exam GI & Abdominal Exam: Soft, Normal Bowel Sounds. absent: Tenderness - Neurological Exam Neurological Exam: Alert, Awake, CN II-XII Intact, Normal Gait, Oriented x3 - Psychiatric Exam Psychiatric exam: Normal Affect, Normal Mood Assessment and Plan (1) Asthma exacerbation Status: Acute (2) Bronchitis Status: Acute
[2017-03-25] MEDS: guaiFENesin 100 mg/5 ml Syrup UD PO PRN (02:10)
[2017-03-25] MEDS: Albuterol-Ipratrop 3 mg / 0.5 (3 ml) UD INH SCH ×3 (03:07→13:23)
[2017-03-25 07:56] LABS: BASO % 0.2 % (0.0-2.0); EOS % 0.3 % (0.0-4.0); LYMPH # 3.1 K/uL (1.0-4.3); LYMPH % 21.3 % (20.0-40.0); MEAN CORPUSCULAR HEMOGLOBIN 24.9 pg (27.0-31.0); MEAN CORPUSCULAR HGB CONC 31.2 g/dL (33.0-37.0); MEAN PLATELET VOLUME 7.9 fL (7.2-11.7); MONO # 0.9 K/uL (0.0-0.8); MONO % 6.3 % (0.0-10.0); RED CELL DISTRIBUTION WIDTH 16.2 % (11.5-14.5); WHITE BLOOD COUNT 14.5 K/uL (4.8-10.8)
[2017-03-25 08:12] LABS: CHLORIDE 98 mmol/L (98-107)
[2017-03-25 08:13] LABS: POTASSIUM 4.8 mmol/L (3.6-5.2); SODIUM 132 mmol/L (132-148)
[2017-03-25 08:15] LABS: AST/SGOT 15 U/L (14-36); BILIRUBIN,TOTAL 0.4 mg/dL (0.2-1.3); CARBON DIOXIDE 27 mmol/L (22-30); GFR AFRICAN-AMERICAN > 60
[2017-03-25 08:16] LABS: ALB/GLOB RATIO 1.1 (1.0-2.1); ALKALINE PHOSPHATASE 66 U/L (38-126); ALT/SGPT 21 U/L (9-52); BLOOD UREA NITROGEN 27 mg/dL (7-17); CALCIUM 9.1 mg/dl (8.6-10.4); GLUCOSE,RANDOM 122 mg/dL (65-105); MAGNESIUM 1.7 mg/dL (1.6-2.3); PHOSPHOROUS 3.9 mg/dL (2.5-4.5); TOTAL PROTEIN 6.8 g/dL (6.3-8.3)
[2017-03-25] MEDS: (Novolog) Insulin Aspart, Recombinant 100 u/ml 10 ml vial SC SCH ×2 (08:28→12:39)
[2017-03-25 08:48] VITALS: O2SAT 94
[2017-03-25] MEDS ORDERED: MethylPREDNISolone 40 mg Vial IVP SCH (10:00)
[2017-03-25] MEDS: Pantoprazole 40 mg EC Tab PO SCH (10:08)
[2017-03-25] MEDS: Fluticasone Nasal 50 mcg/Spray NS SCH (10:10)
[2017-03-25] MEDS: cefTRIAXone IV 1 gm in Dextros 50 ML IVPB SCH (10:19)
[2017-03-25] MEDS: Azithromycin 500 MG in Sodium Chloride 0.9% 250 ML IVPB SCH (10:20)
--- NOTE | 2017-03-25 12:46 | CARD ---
APPROVED REPORT EKG Measurement Heart [id number] <Conclusion> Atrial fibrillation with rapid ventricular response Nonspecific T wave abnormality Abnormal ECG
--- NOTE | 2017-03-25 14:38 | CP.PCM.PN ---
Subjective - Date & Time of Evaluation Date of Evaluation: 03/25/17 Time of Evaluation: 14:36 - Subjective Subjective: PT SEEN AND CLEARED FOR D/C HOME TODAY PER DR. POP. PT STATES SHE FEELS BETTER; DENIES SOB, CP, DIZZINESS, ABD PAIN. STILL HAS UNPROD COUGH. STATES SHE AMBULATED AROUND THE UNIT TODAY WITH NO DISTRESS. ON EXAM PT HAS UNPROD COUGH, MILD WHEEZING B/L, MILD RHONCHI THAT CLEARS WITH COUGH. PER DR. POP PT CAN BE D/C HOME. TO RX MEDROL PACK, ZITHROMAX, AND COUGH SYRUP---SENT TO PHARMACY. PT HAS HOME O2 ALREADY AND HAS AN APPT TO F/U WITH PMD FOR BIPAP. SHE WILL F/U WITH HER PMD WITHIN 1 WEEK. NO FURTHER ORDERS. Objective - Vital Signs/Intake and Output Vital Signs (last 24 hours): Temp Pulse Resp BP Pulse Ox 98.2 F 95 H 20 133/75 94 L 03/25/17 08:25 03/25/17 08:25 03/25/17 08:25 03/25/17 10:08 03/25/17 08:25 - Medications Medications: Current Medications Acetaminophen (Tylenol 325mg Tab) 650 mg PO Q6 PRN PRN Reason: Fever >100.4 F Albuterol Sulfate (Albuterol 0.083% Inhal Destinee (2.5 Mg/3 Ml) Ud) 3 mg INH RQ2 PRN PRN Reason: Shortness of Breath Albuterol/Ipratropium (Duoneb 3 Mg/0.5 Mg (3 Ml) Ud) 3 ml INH RQ4 JB Last Admin: 03/25/17 13:23 Dose: 3 ml Carvedilol (Coreg) 25 mg PO BID JB Last Admin: 03/25/17 10:08 Dose: 25 mg Dextrose (Dextrose 50% Inj) 0 ml IVP .STAT PRN; Protocol PRN Reason: Hypoglycemia Protocol Dextrose (Glutose 15) 0 gm PO .ONCE PRN; Protocol PRN Reason: Hypoglycemia Protocol Fluticasone Propionate (Flonase) 2 spr NS DAILY [facility] Last Admin: 03/25/17 10:10 Dose: 2 spr Glimepiride (Amaryl) 1 mg PO DAILY [facility] Last Admin: 03/25/17 10:31 Dose: Not Given Glucagon (Glucagen Diagnostic Kit) 0 mg IM .STAT PRN; Protocol PRN Reason: Hypoglycemia Protocol Guaifenesin (Robitussin) 100 mg PO Q4H PRN PRN Reason: Cough Last Admin: 03/25/17 02:10 Dose: 100 mg Guaifenesin/Dextromethorphan (Robitussin Dm) 5 ml PO Q4H PRN PRN Reason: Cough Last Admin: 03/24/17 14:03 Dose: 5 ml Heparin Sodium (Porcine) (Heparin) 5,000 units SC Q12 JB Last Admin: 03/25/17 10:10 Dose: 5,000 units Azithromycin 500 mg/ Sodium (Chloride) 250 mls @ 250 mls/hr IVPB DAILY JB Last Admin: 03/25/17 10:20 Dose: 250 mls/hr Ceftriaxone Sodium (Rocephin Iv 1 Gm Duplex) 50 mls @ 100 mls/hr IVPB DAILY JB Last Admin: 03/25/17 10:19 Dose: 100 mls/hr Insulin Aspart (Novolog) 0 unit SC ACHS JB PRN Reason: Protocol Last Admin: 03/25/17 12:39 Dose: 1 unit Metformin HCl (Glucophage) 1,000 mg PO BID [facility] Last Admin: 03/25/17 10:09 Dose: 1,000 mg Methylprednisolone (Solu-Medrol) 60 mg IVP DAILY [facility] Last Admin: 03/25/17 10:11 Dose: 60 mg Montelukast Sodium (Singulair) 10 mg PO HS [facility] Last Admin: 03/24/17 22:02 Dose: 10 mg Pantoprazole Sodium (Protonix Ec Tab) 40 mg PO DAILY JB Last Admin: 03/25/17 10:08 Dose: 40 mg Rosuvastatin Calcium (Crestor) 10 mg PO HS [facility] Last Admin: 03/24/17 22:01 Dose: 10 mg - Labs Labs: 03/25/17 07:49 03/25/17 07:49
[2017-03-25] MEDS ORDERED: Influenza Vaccine 60 mcg/0.5 mL SYR (4YR UP) IM ONE (15:10)
[2017-03-25] MEDS ORDERED: Pneumococcal 23-Valent Vaccine IM ONE (15:10)
[2017-03-25 15:26] VITALS: BP 132/80; PULSE 107; TEMP 97.9
--- NOTE | 2017-03-25 23:36 | CP.PCM.DIS ---
Provider - Provider Date of Admission: 03/22/17 22:38 Attending physician: Brent Lara MD Time Spent in preparation of Discharge (in minutes): 34 Diagnosis - Discharge Diagnosis (1) Asthma exacerbation Status: Acute (2) Bronchitis Status: Acute Hospital Course - Lab Results Lab Results: Micro Results 03/23/17 15:40 Blood Blood Culture - Preliminary NO GROWTH AFTER 48 HOURS Most Recent Lab Values WBC 14.5 K/uL (4.8-10.8) H 03/25/17 07:49 RBC 4.25 Mil/uL (3.80-5.20) 03/25/17 07:49 Hgb 10.6 g/dL (11.0-16.0) L 03/25/17 07:49 Hct 34.0 % (34.0-47.0) 03/25/17 07:49 MCV 80.0 fL (81.0-99.0) L 03/25/17 07:49 MCH 24.9 pg (27.0-31.0) L 03/25/17 07:49 MCHC 31.2 g/dL (33.0-37.0) L 03/25/17 07:49 RDW 16.2 % (11.5-14.5) H 03/25/17 07:49 Plt Count 256 K/uL (130-400) 03/25/17 07:49 MPV 7.9 fL (7.2-11.7) 03/25/17 07:49 Neut % (Auto) 71.9 % (50.0-75.0) 03/25/17 07:49 Lymph % (Auto) 21.3 % (20.0-40.0) 03/25/17 07:49 Alexander % (Auto) 6.3 % (0.0-10.0) 03/25/17 07:49 Eos % (Auto) 0.3 % (0.0-4.0) 03/25/17 07:49 Baso % (Auto) 0.2 % (0.0-2.0) 03/25/17 07:49 Neut # 10.4 K/uL (1.8-7.0) H 03/25/17 07:49 Lymph # 3.1 K/uL (1.0-4.3) 03/25/17 07:49 Alexander # 0.9 K/uL (0.0-0.8) H 03/25/17 07:49 Eos # 0.0 K/uL (0.0-0.7) 03/25/17 07:49 Baso # 0.0 K/uL (0.0-0.2) 03/25/17 07:49 Sodium 132 mmol/L (132-148) 03/25/17 07:49 Potassium 4.8 mmol/L (3.6-5.2) 03/25/17 07:49 Chloride 98 mmol/L (98-107) 03/25/17 07:49 Carbon Dioxide 27 mmol/L (22-30) 03/25/17 07:49 Anion Gap 11 (10-20) 03/25/17 07:49 BUN 27 mg/dL (7-17) H 03/25/17 07:49 Creatinine 0.9 mg/dL (0.7-1.2) 03/25/17 07:49 Est GFR ( Amer) > 60 03/25/17 07:49 Est GFR (Non-Af Amer) > 60 03/25/17 07:49 POC Glucose (mg/dL) 171 mg/dL (65-110) H 03/25/17 12:03 Random Glucose 122 mg/dL (65-105) H 03/25/17 07:49 Calcium 9.1 mg/dl (8.6-10.4) 03/25/17 07:49 Phosphorus 3.9 mg/dL (2.5-4.5) 03/25/17 07:49 Magnesium 1.7 mg/dL (1.6-2.3) 03/25/17 07:49 Total Bilirubin 0.4 mg/dL (0.2-1.3) 03/25/17 07:49 AST 15 U/L (14-36) 03/25/17 07:49 ALT 21 U/L (9-52) 03/25/17 07:49 Alkaline Phosphatase 66 U/L (38-126) 03/25/17 07:49 Troponin I < 0.0120 ng/mL (0.00-0.120) 03/22/17 20:22 NT-Pro-B Natriuret Pep 517 pg/mL (0-900) 03/22/17 20:22 Total Protein 6.8 g/dL (6.3-8.3) 03/25/17 07:49 Albumin 3.6 g/dL (3.5-5.0) 03/25/17 07:49 Globulin 3.3 gm/dL (2.2-3.9) 03/25/17 07:49 Albumin/Globulin Ratio 1.1 (1.0-2.1) 03/25/17 07:49 - Hospital Course Hospital Course: PT SEEN AND CLEARED FOR D/C HOME TODAY , PT STATES SHE FEELS BETTER; DENIES SOB , CP, DIZZINESS, ABD PAIN. STILL HAS UNPROD COUGH. STATES SHE AMBULATED AROUND THE UNIT TODAY WITH NO DISTRESS. ON EXAM PT HAS UNPROD COUGH, MILD WHEEZING B/L, MILD RHONCHI THAT CLEARS WITH COUGH. PER DR. LARA PT CAN BE D/C HOME. TO RX MEDROL PACK, ZITHROMAX, AND COUGH SYRUP---SENT TO PHARMACY. PT HAS HOME O2 ALREADY AND HAS AN APPT TO F/U WITH PMD FOR BIPAP. SHE WILL F/U WITH HER PMD WITHIN 1 WEEK. NO FURTHER ORDERS. Discharge Exam - Head Exam Head Exam: ATRAUMATIC, NORMAL INSPECTION, NORMOCEPHALIC Discharge Plan - Discharge Medications Prescriptions: Methylprednisolone [Medrol Dose Pack (21 tabs)] 4 mg PO DAILY #21 mg guaiFENesin [Robitussin] 100 mg PO Q4H PRN #8 oz PRN Reason: Cough Azithromycin [Z-Valentín] 250 mg PO DAILY #6 tab - Follow Up Plan Condition: FAIR Disposition: HOME/ ROUTINE Instructions: Guaifenesin (By mouth), Azithromycin (By mouth), Methylprednisolone (By mouth), Asthma (DC), Diabetic Foot Care (DC), Basic Carbohydrate Counting (DC), Meal Planning with the Plate Method (DC), Meal Planning with Diabetes Exchanges (DC) Additional Instructions: ORLIN DARRYL SONIDO CON TEIXEIRA MEDICO PRIMARIO ENTRE DARRYL SEMANA--LLAME PARA HACER LA SONIDO. ORLIN DARRYL SONIDO CON TEIXEIRA PULMONARIO ENTRE DARRYL SEMANA. SUZY TODAS LAS MEDICINAS EN [place] NORMAL. SIGUE TOMANDO EL JARABE PARA LA TOS, EL PREDNISONE, Y TAMBIEN EL ANTIBIOTICO. SI USTED TIENES MAS PREGUNTAS, LLAMA A TEIXEIRA MEDICO PRIMARIO. Referrals: Brent Lara MD [Staff Provider] -
== END 2017-03-25 16:40 | disposition home or self-care (01) | DRG 203 ==
LOC: C.ER 18:06 → C.9E 22:38 → C.6T 03-23 00:01
PROVIDERS: ADMIT Internal Medicine; ATTEND Internal Medicine
DX: J45.901 Unspecified asthma with (acute) exacerbation (principal); Z99.81 Dependence on supplemental oxygen; J20.9 Acute bronchitis, unspecified; E11.9 Type 2 diabetes mellitus without complications; I10 Essential (primary) hypertension; E78.00 Pure hypercholesterolemia, unspecified; F17.210 Nicotine dependence, cigarettes, uncomplicated; Z79.4 Long term (current) use of insulin

== ENCOUNTER 2017-12-30 12:05 | Inpatient (IN) | payer MEDICARE, MEDICAID ==
[2017-12-30 12:05] VITALS: BMI 45.0
[2017-12-30] MEDS ORDERED: Albuterol-Ipratrop 3 mg / 0.5 (3 ml) UD ONE (12:21)
--- NOTE | 2017-12-30 13:48 | RAD ---
HISTORY: COMPARISON: 03/22/2017. TECHNIQUE: Chest PA and lateral FINDINGS: LINES AND TUBES: None. LUNG AND PLEURA: The lungs are well inflated. There is moderate pulmonary venous congestion. No consolidation. No pleural effusion or pneumothorax. HEART AND MEDIASTINUM: Persistent severe cardiomegaly. The hilar and mediastinal contours are within normal limits. SKELETAL STRUCTURES: The bony structures are within normal limits for the patient's age. VISUALIZED UPPER ABDOMEN: Normal. OTHER FINDINGS: None. IMPRESSION: No active pulmonary disease. Persistent severe cardiomegaly and moderate pulmonary venous congestion.
[2017-12-30 14:08] LABS: ABG ALLEN TEST P; ARTERIAL BLOOD GAS HCO3 24.9 mmol/L (21-28); ARTERIAL BLOOD GAS O2 SAT 95.9 % (95-98); ARTERIAL BLOOD GAS PCO2 40 mm/Hg (35-45); ARTERIAL BLOOD GAS PO2 73 mm/Hg (80-100)
[2017-12-30 14:12] LABS: BASO % 0.6 % (0.0-2.0); EOS # 0.5 K/uL (0.0-0.7); EOS % 5.6 % (0.0-4.0); HEMOGLOBIN 10.5 g/dL (11.0-16.0); LYMPH # 2.2 K/uL (1.0-4.3); LYMPH % 26.5 % (20.0-40.0); MEAN CELL VOLUME 78.8 fL (81.0-99.0); MEAN CORPUSCULAR HEMOGLOBIN 24.6 pg (27.0-31.0); MEAN CORPUSCULAR HGB CONC 31.2 g/dL (33.0-37.0); MEAN PLATELET VOLUME 7.6 fL (7.2-11.7); MONO # 0.5 K/uL (0.0-0.8); NEUT % 61.3 % (50.0-75.0); RBC 4.27 Mil/uL (3.80-5.20); RED CELL DISTRIBUTION WIDTH 15.6 % (11.5-14.5); WHITE BLOOD COUNT 8.1 K/uL (4.8-10.8)
[2017-12-30 14:17] LABS: INR 1.1; PROTHROMBIN TIME 11.9 SECONDS (9.7-12.2)
[2017-12-30 14:25] LABS: ALB/GLOB RATIO 1.1 (1.0-2.1); ALBUMIN 3.8 g/dL (3.5-5.0); ALT/SGPT 22 U/L (9-52); AST/SGOT 15 U/L (14-36); BLOOD UREA NITROGEN 14 mg/dL (7-17); CALCIUM 9.3 mg/dl (8.6-10.4); GFR AFRICAN-AMERICAN > 60; GFR NON-AFRICAN AMERICAN > 60
[2017-12-30 14:34] LABS: B-TYPE NATRIURETIC PEPTIDE 801 pg/mL (0-900)
[2017-12-30] MEDS ORDERED: Enoxaparin 40 mg Syringe SC STA (15:21)
--- NOTE | 2017-12-30 15:25 | C.PDOC ---
History Of Present Illness 67 y/o female presents to the ED with worsening SOB over the past few days. Patient has PMHx of asthma. She also reports back pain. On arrival, patient is speaking in 4-5 word sentences. She denies any cough, congestion, sore throat, fever, chills, chest pain, nausea, vomiting, or dizziness. Time Seen by Provider: 12/30/17 12:56 Chief Complaint (Nursing): Shortness Of Breath History Per: Patient History/Exam Limitations: no limitations Onset/Duration Of Symptoms: Days Current Symptoms Are (Timing): Worse Past Medical History Reviewed: Historical Data, Nursing Documentation, Vital Signs Vital Signs: Last Vital Signs Temp 98.3 F 12/30/17 18:31 Pulse 72 12/30/17 18:31 Resp 24 12/30/17 18:31 BP 156/73 H 12/30/17 18:31 Pulse Ox 98 12/30/17 18:31 - Medical History PMH: Asthma, Bronchitis, Diabetes, HTN, Hypercholesterolemia Denies: Chronic Kidney Disease Surgical History: Appendectomy Family History: States: Unknown Family Hx - Social History Hx Tobacco Use: No (Quit years ago) Hx Alcohol Use: No Hx Substance Use: No - Immunization History Hx Tetanus Toxoid Vaccination: Yes Hx Influenza Vaccination: Yes Hx Pneumococcal Vaccination: Yes Review Of Systems Except As Marked, All Systems Reviewed And Found Negative. Constitutional: Negative for: Fever, Chills ENT: Negative for: Nose Congestion, Throat Pain Cardiovascular: Negative for: Chest Pain Respiratory: Positive for: Shortness of Breath. Negative for: Cough Gastrointestinal: Negative for: Nausea, Vomiting Musculoskeletal: Positive for: Back Pain Neurological: Negative for: Weakness, Dizziness Physical Exam - Physical Exam Appears: Non-toxic, No Acute Distress, Other (Morbidly obese female) Skin: Normal Color, Warm Head: Atraumatic, Normacephalic Eye(s): bilateral: Normal Inspection, PERRL, EOMI Oral Mucosa: Moist Neck: Normal ROM Chest: Symmetrical Cardiovascular: JVD, Other (+ S3) Respiratory: No Accessory Muscle Use, Rales, No Rhonchi, Other (No acute respiratory distress) Gastrointestinal/Abdominal: Soft, No Tenderness, No Distention Extremity: Normal ROM, No Calf Tenderness, No Deformity, Swelling (+4/4 pitting edema to LE) Pulses: Left Dorsalis Pedis: Normal, Right Dorsalis Pedis: Normal Neurological/Psych: Oriented x3, Normal Speech, Normal Cranial Nerves ED Course And Treatment - Laboratory Results Result Diagrams: 12/30/17 14:05 12/30/17 14:05 ECG: Interpreted By Me ECG Rhythm: Atrial Fibrillation ECG Interpretation: Normal Rate From EC O2 Sat by Pulse Oximetry: 97 (NC) Pulse Ox Interpretation: Normal - Radiology CXR: Viewed By Me, Read By Radiologist CXR Interpretation: Yes: Other (No active pulmonary disease. Persistent severe cardiomegaly and moderate pulmonary venous congestion) Reevaluation Time: 15:15 Reassessment Condition: Improved - Physician Consult Information Time Consulting Physician Contacted: 15:27 Physician Contacted: Brent Lara Outcome Of Conversation: Patient accepted for admission Medical Decision Making Medical Decision Making: Initial Plan: --EKG --CMP --CBC --Troponin I --pro-BNP --PTT --PT --D dimer --UA --Lasix 40 mg IVP Patient also has hx of A Fib, uncoagulated for some reason. Given 100mg Lovenox SC. Disposition Counseled Patient/Family Regarding: Studies Performed, Diagnosis - Disposition Disposition: HOSPITALIZED Disposition Time: 15:30 Condition: GOOD - Clinical Impression Clinical Impression: Chronic congestive heart failure - Scribe Statement The provider has reviewed the documentation as recorded by the Scribe (Prema Avendaño) Provider Attestation: All medical record entries made by the Scribe were at my direction and personally dictated by me. I have reviewed the chart and agree that the record accurately reflects my personal performance of the history, physical exam, medical decision making, and the department course for this patient. I have also personally directed, reviewed, and agree with the discharge instructions and disposition.
--- NOTE | 2017-12-30 15:29 | C.PDOC ---
Time Seen by Provider: 12/30/17 12:56 Chief Complaint (Nursing): Shortness Of Breath Past Medical History Vital Signs: Last Vital Signs Temp 97.8 F 12/30/17 12:11 Pulse 82 12/30/17 12:11 Resp 18 12/30/17 12:34 BP 140/66 12/30/17 13:55 Pulse Ox 97 12/30/17 12:34 - Medical History PMH: Asthma, Bronchitis, Diabetes, HTN, Hypercholesterolemia Denies: Chronic Kidney Disease Surgical History: Appendectomy Family History: States: Unknown Family Hx - Social History Hx Tobacco Use: No (Quit years ago) Hx Alcohol Use: No Hx Substance Use: No - Immunization History Hx Tetanus Toxoid Vaccination: Yes Hx Influenza Vaccination: Yes Hx Pneumococcal Vaccination: Yes ED Course And Treatment - Laboratory Results Result Diagrams: 12/30/17 14:05 12/30/17 14:05 O2 Sat by Pulse Oximetry: 97 Disposition - Disposition
[2017-12-30 15:35] LABS: SQUAMOUS EPITHIAL < 1 /hpf (0-5); URINE BACTERIA RARE (<OCC); URINE BILIRUBIN NEGATIVE (NEGATIVE); URINE BLOOD NEGATIVE (NEGATIVE); URINE CLARITY Clear (Clear); URINE COLOR Straw (YELLOW); URINE GLUCOSE (UA) NORMAL (Normal); URINE LEUKOCYTE ESTERASE NEG Leu/uL (Negative); URINE PROTEIN NEGATIVE (NEGATIVE); URINE UROBILINOGEN NORMAL mg/dL (0.2-1.0)
[2017-12-30] MEDS ORDERED: Enoxaparin 100 mg Syringe ONE (16:18)
[2017-12-30] MEDS ORDERED: Albuterol HFA 90 mcg/actuation (8 g) IH PRN (18:09)
[2017-12-30] MEDS ORDERED: MethylPREDNISolone 40 mg Vial IVP STA (18:12)
[2017-12-30 21:14] LABS: CK-MB 0.37 ng/mL (0.0-3.38)
[2017-12-30] MEDS: (Novolog) Insulin Aspart, Recombinant 100 u/ml 10 ml vial SC SCH (21:46)
[2017-12-30] MEDS: Albuterol 0.083% Inhal Sol (2.5 mg/3 mL) UD IH PRN (21:47)
[2017-12-31 01:49] LABS: CK-MB 0.39 ng/mL (0.0-3.38)
[2017-12-31] MEDS: (Novolog) Insulin Aspart, Recombinant 100 u/ml 10 ml vial SC SCH ×4 (07:58→21:32)
[2017-12-31] MEDS ORDERED: Fluticasone Nasal 50 mcg/Spray NS SCH (10:00)
[2017-12-31] MEDS: Pantoprazole 40 mg EC Tab PO SCH (10:18)
[2017-12-31] MEDS: Enoxaparin 40 mg Syringe SC SCH (10:19)
[2017-12-31] MEDS ORDERED: Iodixanol 320 mg/ml 150 ml Bottle IV ONE (10:19)
--- NOTE | 2017-12-31 12:51 | CT ---
Date of service: 12/31/2017 PROCEDURE: CT Chest with contrast (Pulmonary Angiogram) HISTORY: rule out PE COMPARISON: Comparison is made to the previous CT of the chest without contrast dated 11/28/2015 TECHNIQUE: Axial computed tomography images were obtained of the chest in the pulmonary arterial phase of enhancement. Coronal and sagittal reformatted images were created and reviewed. Intravenous contrast dose: 100 mL Visipaque 320 Radiation dose: Total exam DLP = 599.73 mGy-cm. This CT exam was performed using one or more of the following dose reduction techniques: Automated exposure control, adjustment of the mA and/or kV according to patient size, and/or use of iterative reconstruction technique. FINDINGS: PULMONARY ARTERIES: Unremarkable. No pulmonary embolism. AORTA: No acute findings. No thoracic aortic aneurysm. LUNGS: There are nonspecific small foci of ground-glass opacities seen at the mid and lower lungs may be related to mild pulmonary vascular congestion. . No nodule, mass or pulmonary consolidation. PLEURAL SPACES: Trace right pleural effusion is noted. No evidence of pneumothorax. HEART: The heart is mildly to moderately enlarged. The right heart chambers especially the right atria are enlarged. The main pulmonary artery is mildly enlarged measures up to 4.2 centimeter in the transverse diameter. LYMPH NODES: Mildly enlarged right paratracheal lymph node measures 1.5 centimeter. Otherwise no evidence of significant lymphadenopathy. BONES, CHEST WALL: Unremarkable. No fracture or destructive lesion OTHER FINDINGS: Again seen is fat containing right adrenal lesion measures 2.8 centimeter in the current study may represent benign adenoma or myelolipoma. There is also fat containing 2.5 centimeter lesion in the left adrenal gland likely represent benign adenoma or myelolipoma. There is low-attenuation exophytic lesion from the upper pole of the left kidney measures 6.9 x 5.5 centimeter. Further assessment by ultrasound is recommended. IMPRESSION: No evidence of acute pulmonary embolus. Cardiomegaly. Scattered small nonspecific foci of ground-glass opacities at the mid and lower lung may represent mild pulmonary vascular congestion. Questionable trace right pleural effusion. Fat containing K bilateral adrenal gland mass lesions may represent myelo lipoma. Low-attenuation exophytic lesion in the upper pole of the left kidney. Further assessment by ultrasound is suggested.
--- NOTE | 2017-12-31 14:16 | CARD ---
APPROVED REPORT Date of service: 12/30/2017 EKG Measurement Heart [id number] <Conclusion> Atrial fibrillation Abnormal ECG
--- NOTE | 2017-12-31 15:50 | CP.PCM.HP ---
History of Present Illness - History of Present Illness History of Present Illness: Chief Complaint : Shortness Of Breath History Of Present Illness 67 y/o female presents to the ED with worsening SOB over the past few days. Patient has PMHx of asthma. She also reports back pain. On arrival, patient is speaking in 4-5 word sentences. She denies any cough, congestion, sore throat, fever, chills, chest pain, nausea, vomiting, or dizziness. PMH: HTN, DM PSH: peritonitis, , hernia repair Social history: smoker for 9 years 1 cigarette every 2 days. no alcohol or illicit drugs Allergies: pollen Past Patient History - Infectious Disease Hx of Infectious Diseases: None - Past Medical History & Family History Past Medical History?: Yes - Past Social History Smoking Status: Former Smoker - CARDIAC Hx Hypercholesterolemia: Yes Hx Hypertension: Yes - PULMONARY Hx Respiratory Disorders: Yes Hx Asthma: Yes Hx Bronchitis: Yes - NEUROLOGICAL Hx Neurological Disorder: No - HEENT Hx HEENT Problems: No - RENAL Hx Chronic Kidney Disease: No - ENDOCRINE/METABOLIC Hx Endocrine Disorders: Yes Hx Diabetes Mellitus Type 2: Yes - HEMATOLOGICAL/ONCOLOGICAL Hx Blood Disorders: No - INTEGUMENTARY Hx Dermatological Problems: No - MUSCULOSKELETAL/RHEUMATOLOGICAL Hx Falls: No - GASTROINTESTINAL Hx Gastrointestinal Disorders: Yes Other/Comment: peritonitis - GENITOURINARY/GYNECOLOGICAL Hx Genitourinary Disorders: No - PSYCHIATRIC Hx Psychophysiologic Disorder: No Hx Substance Use: No - SURGICAL HISTORY Hx Surgeries: Yes Hx Appendectomy: Yes Hx Herniorrhaphy: Yes Hx Hysterectomy: Yes - ANESTHESIA Hx Anesthesia: Yes Hx Anesthesia Reactions: No Hx Malignant Hyperthermia: No Has any member of the family had a problem w/ anesthesia?: No Meds Allergies/Adverse Reactions: Allergies Allergy/AdvReac Type Severity Reaction Status Date / Time pollen Allergy SHORTNESS Uncoded 12/30/17 12:14 OF BREATH Results - Vital Signs Recent Vital Signs: Last Vital Signs Temp 97.9 F 12/31/17 07:00 Pulse 82 12/31/17 15:04 Resp 20 12/31/17 07:00 BP 143/86 12/31/17 10:18 Pulse Ox 97 12/31/17 15:04 - Labs Result Diagrams: 12/30/17 14:05 12/30/17 14:05 Labs: Laboratory Results - last 24 hr 12/30/17 12/30/17 12/31/17 20:46 21:11 01:10 POC Glucose (mg/dL) 209 H Total Creatine Kinase 42 39 CK-MB (Mass) 0.37 0.39 Troponin I < 0.0120 < 0.0120 12/31/17 12/31/17 06:22 12:45 POC Glucose (mg/dL) 192 H 101 Total Creatine Kinase CK-MB (Mass) Troponin I
--- NOTE | 2017-12-31 16:17 | CP.PCM.CON ---
History of Present Illness - History of Present Illness History of Present Illness: 67-year-old femalewith history of asthma presented to the emergency room with worsening shortness of breath and cough. Patient denies Fever, chills, chest pain. Patient denies sick contacts. Patient states she feels a little bit better since arriving to ER. PMH: HTN, DM PSH: peritonitis, , hernia repair Social history: smoker for 9 years 1 cigarette every 2 days. no alcohol or illicit drugs Allergies: pollen Review of Systems - Review of Systems All systems: reviewed and no additional remarkable complaints except (shortness of breath and cough) Past Patient History - Infectious Disease Hx of Infectious Diseases: None - Past Medical History & Family History Past Medical History?: Yes - Past Social History Smoking Status: Former Smoker - CARDIAC Hx Hypercholesterolemia: Yes Hx Hypertension: Yes - PULMONARY Hx Respiratory Disorders: Yes Hx Asthma: Yes Hx Bronchitis: Yes - NEUROLOGICAL Hx Neurological Disorder: No - HEENT Hx HEENT Problems: No - RENAL Hx Chronic Kidney Disease: No - ENDOCRINE/METABOLIC Hx Endocrine Disorders: Yes Hx Diabetes Mellitus Type 2: Yes - HEMATOLOGICAL/ONCOLOGICAL Hx Blood Disorders: No - INTEGUMENTARY Hx Dermatological Problems: No - MUSCULOSKELETAL/RHEUMATOLOGICAL Hx Falls: No - GASTROINTESTINAL Hx Gastrointestinal Disorders: Yes Other/Comment: peritonitis - GENITOURINARY/GYNECOLOGICAL Hx Genitourinary Disorders: No - PSYCHIATRIC Hx Psychophysiologic Disorder: No Hx Substance Use: No - SURGICAL HISTORY Hx Surgeries: Yes Hx Appendectomy: Yes Hx Herniorrhaphy: Yes Hx Hysterectomy: Yes - ANESTHESIA Hx Anesthesia: Yes Hx Anesthesia Reactions: No Hx Malignant Hyperthermia: No Has any member of the family had a problem w/ anesthesia?: No Meds Allergies/Adverse Reactions: Allergies Allergy/AdvReac Type Severity Reaction Status Date / Time pollen Allergy SHORTNESS Uncoded 12/30/17 12:14 OF BREATH - Medications Medications: Current Medications Acetaminophen (Tylenol 325mg Tab) 650 mg PO Q6 PRN PRN Reason: Fever >100.4 F Albuterol (Ventolin Hfa 90 Mcg/Actuation (8 G)) 2 puff IH RQ4 PRN PRN Reason: Wheezing Albuterol Sulfate (Albuterol 0.083% Inhal Destinee (2.5 Mg/3 Ml) Ud) 2.5 mg IH RQ6 PRN PRN Reason: Shortness of Breath Last Admin: 12/30/17 21:47 Dose: 2.5 mg Alprazolam (Xanax) 0.25 mg PO TID [facility] Stop: 01/07/18 10:01 Last Admin: 12/31/17 13:40 Dose: 0.25 mg Aspirin (Ecotrin) 81 mg PO DAILY [facility] Last Admin: 12/31/17 10:21 Dose: 81 mg Carvedilol (Coreg) 25 mg PO BID [facility] Last Admin: 12/31/17 10:18 Dose: 25 mg Enoxaparin Sodium (Lovenox) 40 mg SC DAILY [facility] Last Admin: 12/31/17 10:19 Dose: 40 mg Fluticasone Propionate (Flonase) 2 spr NS DAILY [facility] Last Admin: 12/31/17 10:18 Dose: 2 spr Glimepiride (Amaryl) 1 mg PO DAILY [facility] Last Admin: 12/31/17 10:19 Dose: 1 mg Insulin Aspart (Novolog) 0 unit SC [facility] PRN Reason: Protocol Last Admin: 12/31/17 12:48 Dose: Not Given Metformin HCl (Glucophage) 1,000 mg PO BID [facility] Last Admin: 12/31/17 10:19 Dose: 1,000 mg Montelukast Sodium (Singulair) 10 mg PO [facility] Last Admin: 12/30/17 21:46 Dose: 10 mg Pantoprazole Sodium (Protonix Ec Tab) 40 mg PO DAILY [facility] Last Admin: 12/31/17 10:18 Dose: 40 mg Rosuvastatin Calcium (Crestor) 10 mg PO [facility] Physical Exam - Head Exam Head Exam: ATRAUMATIC, NORMOCEPHALIC - Eye Exam Eye Exam: Normal appearance - ENT Exam ENT Exam: Mucous Membranes Moist - Neck Exam Neck exam: Positive for: Normal Inspection - Respiratory Exam Respiratory Exam: Rhonchi, Wheezes - Cardiovascular Exam Cardiovascular Exam: REGULAR RHYTHM - GI/Abdominal Exam GI & Abdominal Exam: Normal Bowel Sounds, Soft - Extremities Exam Extremities exam: Positive for: pedal edema Results - Vital Signs Recent Vital Signs: Last Vital Signs Temp 97.9 F 12/31/17 07:00 Pulse 82 12/31/17 15:04 Resp 20 12/31/17 07:00 BP 143/86 12/31/17 10:18 Pulse Ox 97 12/31/17 15:04 - Labs Result Diagrams: 12/30/17 14:05 12/30/17 14:05 Labs: Laboratory Results - last 24 hr 12/30/17 12/30/17 12/31/17 20:46 21:11 01:10 POC Glucose (mg/dL) 209 H Total Creatine Kinase 42 39 CK-MB (Mass) 0.37 0.39 Troponin I < 0.0120 < 0.0120 12/31/17 12/31/17 06:22 12:45 POC Glucose (mg/dL) 192 H 101 Total Creatine Kinase CK-MB (Mass) Troponin I Assessment & Plan (1) Asthma exacerbation Assessment and Plan: CAT scan of the chest consistent with mild pulmonary edema Bilateral adrenal lipoma/cyst Continue nebulizer treatment Continue inhaled steroids Add antibiotics Follow up ABG and chest x-ray Status: Acute
[2017-12-31] MEDS: cefTRIAXone IV 1 gm in Dextros 50 ML IVPB SCH (17:19)
--- NOTE | 2017-12-31 23:47 | CP.PCM.PN ---
Subjective - Date & Time of Evaluation Date of Evaluation: 12/31/17 Time of Evaluation: 17:35 - Subjective Subjective: Pt seen and examined at bedside Objective - Vital Signs/Intake and Output Vital Signs (last 24 hours): Temp Pulse Resp BP Pulse Ox 97.9 F 73 21 146/86 95 12/31/17 16:04 12/31/17 18:00 12/31/17 16:04 12/31/17 17:47 12/31/17 16:04 - Medications Medications: Current Medications Acetaminophen (Tylenol 325mg Tab) 650 mg PO Q6 PRN PRN Reason: Fever >100.4 F Albuterol (Ventolin Hfa 90 Mcg/Actuation (8 G)) 2 puff IH RQ4 PRN PRN Reason: Wheezing Albuterol Sulfate (Albuterol 0.083% Inhal Destinee (2.5 Mg/3 Ml) Ud) 2.5 mg IH RQ6 PRN PRN Reason: Shortness of Breath Last Admin: 12/30/17 21:47 Dose: 2.5 mg Alprazolam (Xanax) 0.25 mg PO TID [facility] Stop: 01/07/18 10:01 Last Admin: 12/31/17 17:19 Dose: 0.25 mg Aspirin (Ecotrin) 81 mg PO DAILY [facility] Last Admin: 12/31/17 10:21 Dose: 81 mg Budesonide (Pulmicort Respules) 0.5 mg INH RQ12 [facility] Carvedilol (Coreg) 25 mg PO BID [facility] Last Admin: 12/31/17 17:47 Dose: 25 mg Enoxaparin Sodium (Lovenox) 40 mg SC DAILY [facility] Last Admin: 12/31/17 10:19 Dose: 40 mg Glimepiride (Amaryl) 1 mg PO DAILY [facility] Last Admin: 12/31/17 10:19 Dose: 1 mg Ceftriaxone Sodium (Rocephin Iv 1 Gm Duplex) 50 mls @ 100 mls/hr IVPB DAILY [facility] PRN Reason: Protocol Last Admin: 12/31/17 17:19 Dose: 100 mls/hr Insulin Aspart (Novolog) 0 unit SC ACHS [facility] PRN Reason: Protocol Last Admin: 12/31/17 21:32 Dose: Not Given Metformin HCl (Glucophage) 1,000 mg PO BID [facility] Last Admin: 12/31/17 17:19 Dose: 1,000 mg Montelukast Sodium (Singulair) 10 mg PO HS [facility] Last Admin: 12/31/17 21:34 Dose: 10 mg Pantoprazole Sodium (Protonix Ec Tab) 40 mg PO DAILY [facility] Last Admin: 12/31/17 10:18 Dose: 40 mg Rosuvastatin Calcium (Crestor) 10 mg PO HS [facility] Last Admin: 12/31/17 21:34 Dose: 10 mg - Labs Labs: 12/30/17 14:05 12/30/17 14:05 PT 11.9 SECONDS (9.7-12.2) 12/30/17 14:05 INR 1.1 12/30/17 14:05 APTT 36 SECONDS (21-34) H 12/30/17 14:05
--- NOTE | 2018-01-01 05:34 | CON ---
Copied To: Nolberto Blake MD Attending MD: Nolberto Blake MD DATE: 12/31/2017 CARDIOLOGY CONSULTATION REFERRING PHYSICIAN: Brent Lara MD HISTORY OF PRESENT ILLNESS: This is a 67-year-old obese female with a history of known asthma, COPD, and possible sleep apnea who was brought in with increasing shortness of breath. She has a longstanding history of hypertension, diabetes, and obesity. History is obtained from the patient and review of the chart as well as through the software release manager. She has been admitted on several occasions in the past for similar problems. She sleeps on two pillows. Able to walk about less than a block without shortness of breath. She denies any chest pains. Denies any documented CA, heart failure, or strokes. PERSONAL HISTORY: One to two cigarette smoker although the patient denies that. No EtOH abuse. ALLERGIES: TO POLLEN. PAST MEDICAL HISTORY: Admitted on multiple occasions for shortness of breath, edema, and orthopnea. The details of cardiac workup are not available at this point. REVIEW OF SYSTEMS: Generalized weakness is noted. Denies any fever and chills. Nonproductive cough. No hemoptysis. No visual disturbances. Denies any chest pains. No hematemesis. No melena. Back pains and knee pains are noted. No history of seizures. No history of depression. Denies any urinary complaints. FAMILY HISTORY: Negative for premature coronary artery disease. MEDICATIONS: At home include metformin, Coreg, glimepiride, nebulizer treatment. PHYSICAL EXAMINATION: GENERAL: Shows elderly female, obese, in mild respiratory distress. VITAL SIGNS: She is 5 feet 5 inches, weighs 292 pounds. Blood pressure is 150/78, heart rate of 80 and irregular, respiratory rate of 24, temperature of 98.3. HEENT: Head is normocephalic. Eyes: No pallor. No icterus. NECK: Supple. No thyroid enlargement. LUNGS: Show a few basilar rales and coarse rhonchi. HEART: Heart sounds are distant and irregular. No definite gallops or murmurs appreciated. ABDOMEN: Soft. EXTREMITIES: Show 2+ edema. Distal pulses are feeble. NEUROLOGIC: She is awake, alert, and oriented x3. MUSCULOSKELETAL: She has no deformity. LABORATORY DATA: EKG is not available although telemetry shows AFib. Hemoglobin is 10.5, BUN is 14, creatinine is 0.8. Chest x-ray and CAT scan had shown CHF. ASSESSMENT: This is a 67-year-old obese female with a history of hypertension, diabetes, has presented with congestive heart failure. RECOMMENDATIONS: At this point, we will continue with IV diuretics, Lasix, daily weights, and we will obtain echocardiogram with Doppler studies. Pulmonary consultation, she is already seen by Dr. Love. If atrial fibrillation is chronic and no contraindication, she would benefit from one of the anticoagulation, i.e., Xarelto or Eliquis. I thank you kindly. We will follow. Nolberto Blake MD
[2018-01-01] MEDS: (Novolog) Insulin Aspart, Recombinant 100 u/ml 10 ml vial SC SCH ×4 (07:23→21:41)
[2018-01-01] MEDS: Albuterol 0.083% Inhal Sol (2.5 mg/3 mL) UD IH PRN ×2 (07:33→22:19)
[2018-01-01] MEDS: Budesonide 0.5 mg/2 ml Inhal Susp UD INH SCH ×2 (07:33→19:46)
[2018-01-01 08:02] LABS: HEMOGLOBIN 9.8 g/dL (11.0-16.0); MEAN CELL VOLUME 78.9 fL (81.0-99.0); MEAN CORPUSCULAR HEMOGLOBIN 24.9 pg (27.0-31.0); MEAN CORPUSCULAR HGB CONC 31.6 g/dL (33.0-37.0); RBC 3.93 Mil/uL (3.80-5.20); RED CELL DISTRIBUTION WIDTH 15.7 % (11.5-14.5); WHITE BLOOD COUNT 10.2 K/uL (4.8-10.8)
[2018-01-01 08:32] LABS: BLOOD UREA NITROGEN 20 mg/dL (7-17); CALCIUM 9.1 mg/dl (8.6-10.4); GFR AFRICAN-AMERICAN > 60; GFR NON-AFRICAN AMERICAN 55
[2018-01-01] MEDS: cefTRIAXone IV 1 gm in Dextros 50 ML IVPB SCH (09:35)
[2018-01-01] MEDS: Enoxaparin 40 mg Syringe SC SCH (09:36)
[2018-01-01] MEDS: Pantoprazole 40 mg EC Tab PO SCH (09:36)
[2018-01-01] MEDS ORDERED: Magnesium Sulfate 1 gm in D5W 1 GM/100 ML BAG IVPB ONE (11:33)
--- NOTE | 2018-01-01 14:12 | CP.PCM.PN ---
Subjective - Date & Time of Evaluation Date of Evaluation: 01/01/18 Time of Evaluation: 14:09 - Subjective Subjective: sob ++. Objective - Vital Signs/Intake and Output Vital Signs (last 24 hours): Temp Pulse Resp BP Pulse Ox 97.6 F 92 H 18 145/77 96 01/01/18 07:00 01/01/18 12:03 01/01/18 07:00 01/01/18 12:03 01/01/18 07:00 - Medications Medications: Current Medications Acetaminophen (Tylenol 325mg Tab) 650 mg PO Q6 PRN PRN Reason: Fever >100.4 F Last Admin: 01/01/18 13:19 Dose: 650 mg Albuterol (Ventolin Hfa 90 Mcg/Actuation (8 G)) 2 puff IH RQ4 PRN PRN Reason: Wheezing Albuterol Sulfate (Albuterol 0.083% Inhal Destinee (2.5 Mg/3 Ml) Ud) 2.5 mg IH RQ6 PRN PRN Reason: Shortness of Breath Last Admin: 01/01/18 07:33 Dose: 2.5 mg Alprazolam (Xanax) 0.25 mg PO TID [facility] Stop: 01/07/18 10:01 Last Admin: 01/01/18 13:19 Dose: 0.25 mg Aspirin (Ecotrin) 81 mg PO DAILY [facility] Last Admin: 01/01/18 09:36 Dose: 81 mg Budesonide (Pulmicort Respules) 0.5 mg INH RQ12 [facility] Last Admin: 01/01/18 07:33 Dose: 0.5 mg Carvedilol (Coreg) 25 mg PO BID [facility] Last Admin: 01/01/18 09:36 Dose: 25 mg Enoxaparin Sodium (Lovenox) 40 mg SC DAILY [facility] Last Admin: 01/01/18 09:36 Dose: 40 mg Glimepiride (Amaryl) 1 mg PO DAILY [facility] Last Admin: 01/01/18 09:35 Dose: 1 mg Ceftriaxone Sodium (Rocephin Iv 1 Gm Duplex) 50 mls @ 100 mls/hr IVPB DAILY [facility] PRN Reason: Protocol Last Admin: 01/01/18 09:35 Dose: 100 mls/hr Insulin Aspart (Novolog) 0 unit SC ACHS [facility] PRN Reason: Protocol Last Admin: 01/01/18 11:23 Dose: Not Given Metformin HCl (Glucophage) 1,000 mg PO BID [facility] Last Admin: 01/01/18 09:35 Dose: 1,000 mg Montelukast Sodium (Singulair) 10 mg PO [facility] Last Admin: 12/31/17 21:34 Dose: 10 mg Pantoprazole Sodium (Protonix Ec Tab) 40 mg PO DAILY [facility] Last Admin: 01/01/18 09:36 Dose: 40 mg Rosuvastatin Calcium (Crestor) 10 mg PO [facility] Last Admin: 12/31/17 21:34 Dose: 10 mg - Labs Labs: 01/01/18 07:48 01/01/18 07:48 PT 11.9 SECONDS (9.7-12.2) 12/30/17 14:05 INR 1.1 12/30/17 14:05 APTT 36 SECONDS (21-34) H 12/30/17 14:05 - Constitutional Appears: No Acute Distress, Chronically Ill - Head Exam Head Exam: NORMOCEPHALIC - Neck Exam Neck Exam: Normal Inspection - Respiratory Exam Respiratory Exam: Rales, Rhonchi - Cardiovascular Exam Cardiovascular Exam: Irregular Rhythm, Murmur - GI/Abdominal Exam GI & Abdominal Exam: Soft - Extremities Exam Extremities Exam: Pedal Edema - Neurological Exam Neurological Exam: Alert, Oriented x3 Assessment and Plan - Assessment and Plan (Free Text) Assessment: echo reviewed by me.appears chronic a,fib.severe pul htn with pa pressures og 70 mm of hg.dilated la,ra,moderate mr,tr.normal lvef of 60-65%.moderate lv diastolic dysfunction. needs iv lasix & anticoagulation,diss with granddaughter & dr willis. Plan: benefits,risk alternatives of xarelto explained.
--- NOTE | 2018-01-01 16:09 | CP.PCM.PN ---
Subjective - Date & Time of Evaluation Date of Evaluation: 01/01/18 Time of Evaluation: 11:20 - Subjective Subjective: patient seen and examined Shortness of breath Less cough Afebrile Started on anticoagulation for chronic atrial fibrillation Severe pulmonary hypertension on echocardiogram Objective - Vital Signs/Intake and Output Vital Signs (last 24 hours): Temp Pulse Resp BP Pulse Ox 97.7 F 100 H 18 144/87 98 01/01/18 15:00 01/01/18 15:00 01/01/18 15:00 01/01/18 15:00 01/01/18 15:00 Intake and Output: 01/01/18 01/01/18 06:59 18:59 Intake Total 300 Balance 300 - Medications Medications: Current Medications Acetaminophen (Tylenol 325mg Tab) 650 mg PO Q6 PRN PRN Reason: Fever >100.4 F Last Admin: 01/01/18 13:19 Dose: 650 mg Albuterol (Ventolin Hfa 90 Mcg/Actuation (8 G)) 2 puff IH RQ4 PRN PRN Reason: Wheezing Albuterol Sulfate (Albuterol 0.083% Inhal Destinee (2.5 Mg/3 Ml) Ud) 2.5 mg IH RQ6 PRN PRN Reason: Shortness of Breath Last Admin: 01/01/18 07:33 Dose: 2.5 mg Alprazolam (Xanax) 0.25 mg PO TID [facility] Stop: 01/07/18 10:01 Last Admin: 01/01/18 13:19 Dose: 0.25 mg Aspirin (Ecotrin) 81 mg PO DAILY [facility] Last Admin: 01/01/18 09:36 Dose: 81 mg Budesonide (Pulmicort Respules) 0.5 mg INH RQ12 [facility] Last Admin: 01/01/18 07:33 Dose: 0.5 mg Carvedilol (Coreg) 25 mg PO BID [facility] Last Admin: 01/01/18 09:36 Dose: 25 mg Furosemide (Lasix) 40 mg IVP DAILY [facility] Last Admin: 01/01/18 14:22 Dose: 40 mg Glimepiride (Amaryl) 1 mg PO DAILY [facility] Last Admin: 01/01/18 09:35 Dose: 1 mg Ceftriaxone Sodium (Rocephin Iv 1 Gm Duplex) 50 mls @ 100 mls/hr IVPB DAILY [facility] PRN Reason: Protocol Last Admin: 01/01/18 09:35 Dose: 100 mls/hr Insulin Aspart (Novolog) 0 unit SC [facility] PRN Reason: Protocol Last Admin: 01/01/18 11:23 Dose: Not Given Metformin HCl (Glucophage) 1,000 mg PO BID [facility] Last Admin: 01/01/18 09:35 Dose: 1,000 mg Montelukast Sodium (Singulair) 10 mg PO HS [facility] Last Admin: 12/31/17 21:34 Dose: 10 mg Pantoprazole Sodium (Protonix Ec Tab) 40 mg PO DAILY [facility] Last Admin: 01/01/18 09:36 Dose: 40 mg Rivaroxaban (Xarelto) 15 mg PO DAILY [facility] Rosuvastatin Calcium (Crestor) 10 mg PO HS [facility] Last Admin: 12/31/17 21:34 Dose: 10 mg - Labs Labs: 01/01/18 07:48 01/01/18 07:48 PT 11.9 SECONDS (9.7-12.2) 12/30/17 14:05 INR 1.1 12/30/17 14:05 APTT 36 SECONDS (21-34) H 12/30/17 14:05 - Head Exam Head Exam: ATRAUMATIC, NORMOCEPHALIC - ENT Exam ENT Exam: Mucous Membranes Moist - Neck Exam Neck Exam: Full ROM - Respiratory Exam Respiratory Exam: Decreased Breath Sounds - Cardiovascular Exam Cardiovascular Exam: Irregular Rhythm - GI/Abdominal Exam GI & Abdominal Exam: Soft, Normal Bowel Sounds - Extremities Exam Extremities Exam: Pedal Edema Assessment and Plan (1) Asthma exacerbation Assessment & Plan: Continue nebulizer treatment, steroids Status: Acute (2) Chronic a-fib Assessment & Plan: started on anticoagulation Status: Acute (3) Pulmonary arterial hypertension Assessment & Plan: rule out obstructive sleep apnea Sleep study as outpatient Continue present treatment for now Status: Acute
[2018-01-02 02:34] LABS: SQUAMOUS EPITHIAL 2 /hpf (0-5); URINE BILIRUBIN NEGATIVE (NEGATIVE); URINE BLOOD NEGATIVE (NEGATIVE); URINE CLARITY Clear (Clear); URINE COLOR Yellow (YELLOW); URINE GLUCOSE (UA) NORMAL (Normal); URINE LEUKOCYTE ESTERASE NEG Leu/uL (Negative); URINE PROTEIN NEGATIVE (NEGATIVE); URINE UROBILINOGEN NORMAL mg/dL (0.2-1.0)
[2018-01-02] MEDS: (Novolog) Insulin Aspart, Recombinant 100 u/ml 10 ml vial SC SCH ×2 (07:19→12:25)
[2018-01-02] MEDS: Budesonide 0.5 mg/2 ml Inhal Susp UD INH SCH (07:23)
[2018-01-02] MEDS: Albuterol 0.083% Inhal Sol (2.5 mg/3 mL) UD IH PRN (07:23)
--- NOTE | 2018-01-02 09:00 | CP.PCM.PN ---
Subjective - Date & Time of Evaluation Date of Evaluation: 01/01/18 Time of Evaluation: 17:00 - Subjective Subjective: Pt was seen and examined during routine follow up today, feeling better, c/o nausea, no vomitting, she assumes its due to pulmicort Objective - Vital Signs/Intake and Output Vital Signs (last 24 hours): Temp Pulse Resp BP Pulse Ox 98.0 F 86 18 126/69 99 01/02/18 07:00 01/02/18 07:45 01/02/18 07:00 01/02/18 07:00 01/02/18 07:00 - Medications Medications: Current Medications Acetaminophen (Tylenol 325mg Tab) 650 mg PO Q6 PRN PRN Reason: Fever >100.4 F Last Admin: 01/02/18 04:40 Dose: 650 mg Albuterol (Ventolin Hfa 90 Mcg/Actuation (8 G)) 2 puff IH RQ4 PRN PRN Reason: Wheezing Albuterol Sulfate (Albuterol 0.083% Inhal [place]inee (2.5 Mg/3 Ml) Ud) 2.5 mg IH RQ6 PRN PRN Reason: Shortness of Breath Last Admin: 01/02/18 07:23 Dose: 2.5 mg Alprazolam (Xanax) 0.25 mg PO TID [facility] Stop: 01/07/18 10:01 Last Admin: 01/01/18 18:00 Dose: 0.25 mg Aspirin (Ecotrin) 81 mg PO DAILY [facility] Last Admin: 01/01/18 09:36 Dose: 81 mg Budesonide (Pulmicort Respules) 0.5 mg INH RQ12 [facility] Last Admin: 01/02/18 07:23 Dose: 0.5 mg Carvedilol (Coreg) 25 mg PO BID [facility] Last Admin: 01/01/18 18:00 Dose: 25 mg Furosemide (Lasix) 40 mg IVP DAILY [facility] Last Admin: 01/01/18 14:22 Dose: 40 mg Glimepiride (Amaryl) 1 mg PO DAILY [facility] Last Admin: 01/01/18 09:35 Dose: 1 mg Ceftriaxone Sodium (Rocephin Iv 1 Gm Duplex) 50 mls @ 100 mls/hr IVPB DAILY [facility] PRN Reason: Protocol Last Admin: 01/01/18 09:35 Dose: 100 mls/hr Insulin Aspart (Novolog) 0 unit SC [facility] PRN Reason: Protocol Last Admin: 01/02/18 07:19 Dose: Not Given Metformin HCl (Glucophage) 1,000 mg PO BID [facility] Last Admin: 01/01/18 18:49 Dose: Not Given Montelukast Sodium (Singulair) 10 mg PO HS [facility] Last Admin: 01/01/18 21:44 Dose: 10 mg Pantoprazole Sodium (Protonix Inj) 40 mg IVP DAILY [facility] Last Admin: 01/01/18 18:00 Dose: 40 mg Rivaroxaban (Xarelto) 15 mg PO DAILY [facility] Rosuvastatin Calcium (Crestor) 10 mg PO [facility] Last Admin: 01/01/18 21:44 Dose: 10 mg - Labs Labs: 01/01/18 07:48 01/01/18 07:48 PT 11.9 SECONDS (9.7-12.2) 12/30/17 14:05 INR 1.1 12/30/17 14:05 APTT 36 SECONDS (21-34) H 12/30/17 14:05 - Constitutional Appears: No Acute Distress - Eye Exam Eye Exam: EOMI, Normal appearance, PERRL Pupil Exam: NORMAL ACCOMODATION, PERRL - ENT Exam ENT Exam: Mucous Membranes Moist, Normal Exam - Respiratory Exam Respiratory Exam: Decreased Breath Sounds, Rales, Rhonchi - Cardiovascular Exam Cardiovascular Exam: REGULAR RHYTHM, +S1, +S2. absent: Murmur - GI/Abdominal Exam GI & Abdominal Exam: Soft, Normal Bowel Sounds. absent: Tenderness - Rectal Exam Rectal Exam: Deferred Assessment and Plan (1) Asthma exacerbation Status: Acute (2) Chronic congestive heart failure Status: Acute (3) Pulmonary arterial hypertension Status: Acute
[2018-01-02] MEDS: cefTRIAXone IV 1 gm in Dextros 50 ML IVPB SCH (09:41)
--- NOTE | 2018-01-02 11:50 | CP.PCM.PN ---
Subjective - Date & Time of Evaluation Date of Evaluation: 01/02/18 Time of Evaluation: 09:20 - Subjective Subjective: patient seen and examined Lying comfortably in no respiratory distress complaining of nausea Afebrile Objective - Vital Signs/Intake and Output Vital Signs (last 24 hours): Temp Pulse Resp BP Pulse Ox 98.0 F 92 H 18 143/82 99 01/02/18 07:00 01/02/18 09:42 01/02/18 07:00 01/02/18 09:42 01/02/18 07:00 - Medications Medications: Current Medications Acetaminophen (Tylenol 325mg Tab) 650 mg PO Q6 PRN PRN Reason: Fever >100.4 F Last Admin: 01/02/18 04:40 Dose: 650 mg Albuterol (Ventolin Hfa 90 Mcg/Actuation (8 G)) 2 puff IH RQ4 PRN PRN Reason: Wheezing Albuterol Sulfate (Albuterol 0.083% Inhal [place]inee (2.5 Mg/3 Ml) Ud) 2.5 mg IH RQ6 PRN PRN Reason: Shortness of Breath Last Admin: 01/02/18 07:23 Dose: 2.5 mg Alprazolam (Xanax) 0.25 mg PO TID [facility] Stop: 01/07/18 10:01 Last Admin: 01/02/18 09:40 Dose: 0.25 mg Aspirin (Ecotrin) 81 mg PO DAILY [facility] Last Admin: 01/02/18 09:40 Dose: 81 mg Budesonide (Pulmicort Respules) 0.5 mg INH RQ12 [facility] Last Admin: 01/02/18 07:23 Dose: 0.5 mg Carvedilol (Coreg) 25 mg PO BID [facility] Last Admin: 01/02/18 09:40 Dose: 25 mg Furosemide (Lasix) 40 mg IVP DAILY [facility] Last Admin: 01/02/18 09:41 Dose: 40 mg Glimepiride (Amaryl) 1 mg PO DAILY [facility] Last Admin: 01/02/18 09:40 Dose: 1 mg Ceftriaxone Sodium (Rocephin Iv 1 Gm Duplex) 50 mls @ 100 mls/hr IVPB DAILY [facility] PRN Reason: Protocol Last Admin: 01/02/18 09:41 Dose: 100 mls/hr Insulin Aspart (Novolog) 0 unit SC ACHS [facility] PRN Reason: Protocol Last Admin: 01/02/18 07:19 Dose: Not Given Metformin HCl (Glucophage) 1,000 mg PO BID [facility] Last Admin: 01/02/18 09:40 Dose: 1,000 mg Montelukast Sodium (Singulair) 10 mg PO HS [facility] Last Admin: 01/01/18 21:44 Dose: 10 mg Ondansetron HCl (Zofran Inj) 4 mg IVP Q6H PRN PRN Reason: Nausea/Vomiting Last Admin: 01/02/18 10:44 Dose: 4 mg Pantoprazole Sodium (Protonix Inj) 40 mg IVP DAILY [facility] Last Admin: 01/02/18 09:40 Dose: 40 mg Rivaroxaban (Xarelto) 15 mg PO DAILY [facility] Last Admin: 01/02/18 09:40 Dose: 15 mg Rosuvastatin Calcium (Crestor) 10 mg PO HS [facility] Last Admin: 01/01/18 21:44 Dose: 10 mg - Labs Labs: 01/01/18 07:48 01/01/18 07:48 PT 11.9 SECONDS (9.7-12.2) 12/30/17 14:05 INR 1.1 12/30/17 14:05 APTT 36 SECONDS (21-34) H 12/30/17 14:05 - Head Exam Head Exam: ATRAUMATIC, NORMOCEPHALIC - Eye Exam Eye Exam: PERRL - ENT Exam ENT Exam: Mucous Membranes Moist - Neck Exam Neck Exam: Normal Inspection - Respiratory Exam Respiratory Exam: Clear to Ausculation Bilateral - Cardiovascular Exam Cardiovascular Exam: Irregular Rhythm - GI/Abdominal Exam GI & Abdominal Exam: Soft, Normal Bowel Sounds Assessment and Plan (1) Asthma exacerbation Assessment & Plan: nebulizer treatment and budesonide Continue xarelto for A. fib sleep study as outpatient Status: Acute (2) Chronic a-fib Status: Acute
--- NOTE | 2018-01-02 11:55 | CP.PCM.PN ---
Subjective - Date & Time of Evaluation Date of Evaluation: 01/02/18 Time of Evaluation: 11:53 - Subjective Subjective: feels better. Objective - Vital Signs/Intake and Output Vital Signs (last 24 hours): Temp Pulse Resp BP Pulse Ox 98.0 F 92 H 18 143/82 99 01/02/18 07:00 01/02/18 09:42 01/02/18 07:00 01/02/18 09:42 01/02/18 07:00 - Medications Medications: Current Medications Acetaminophen (Tylenol 325mg Tab) 650 mg PO Q6 PRN PRN Reason: Fever >100.4 F Last Admin: 01/02/18 04:40 Dose: 650 mg Albuterol (Ventolin Hfa 90 Mcg/Actuation (8 G)) 2 puff IH RQ4 PRN PRN Reason: Wheezing Albuterol Sulfate (Albuterol 0.083% Inhal [place]inee (2.5 Mg/3 Ml) Ud) 2.5 mg IH RQ6 PRN PRN Reason: Shortness of Breath Last Admin: 01/02/18 07:23 Dose: 2.5 mg Alprazolam (Xanax) 0.25 mg PO TID [facility] Stop: 01/07/18 10:01 Last Admin: 01/02/18 09:40 Dose: 0.25 mg Aspirin (Ecotrin) 81 mg PO DAILY [facility] Last Admin: 01/02/18 09:40 Dose: 81 mg Budesonide (Pulmicort Respules) 0.5 mg INH RQ12 [facility] Last Admin: 01/02/18 07:23 Dose: 0.5 mg Carvedilol (Coreg) 25 mg PO BID [facility] Last Admin: 01/02/18 09:40 Dose: 25 mg Furosemide (Lasix) 40 mg IVP DAILY [facility] Last Admin: 01/02/18 09:41 Dose: 40 mg Glimepiride (Amaryl) 1 mg PO DAILY [facility] Last Admin: 01/02/18 09:40 Dose: 1 mg Ceftriaxone Sodium (Rocephin Iv 1 Gm Duplex) 50 mls @ 100 mls/hr IVPB DAILY [facility] PRN Reason: Protocol Last Admin: 01/02/18 09:41 Dose: 100 mls/hr Insulin Aspart (Novolog) 0 unit SC ACHS [facility] PRN Reason: Protocol Last Admin: 08/02/18 07:19 Dose: Not Given Metformin HCl (Glucophage) 1,000 mg PO BID [facility] Last Admin: 01/02/18 09:40 Dose: 1,000 mg Montelukast Sodium (Singulair) 10 mg PO [facility] Last Admin: 01/01/18 21:44 Dose: 10 mg Ondansetron HCl (Zofran Inj) 4 mg IVP Q6H PRN PRN Reason: Nausea/Vomiting Last Admin: 01/02/18 10:44 Dose: 4 mg Pantoprazole Sodium (Protonix Inj) 40 mg IVP DAILY [facility] Last Admin: 01/02/18 09:40 Dose: 40 mg Rivaroxaban (Xarelto) 15 mg PO DAILY [facility] Last Admin: 01/02/18 09:40 Dose: 15 mg Rosuvastatin Calcium (Crestor) 10 mg PO [facility] Last Admin: 01/01/18 21:44 Dose: 10 mg - Labs Labs: 01/01/18 07:48 01/01/18 07:48 PT 11.9 SECONDS (9.7-12.2) 12/30/17 14:05 INR 1.1 12/30/17 14:05 APTT 36 SECONDS (21-34) H 12/30/17 14:05 - Constitutional Appears: No Acute Distress, Chronically Ill - Head Exam Head Exam: NORMOCEPHALIC - Neck Exam Neck Exam: Normal Inspection - Respiratory Exam Respiratory Exam: Rhonchi - Cardiovascular Exam Cardiovascular Exam: Irregular Rhythm, Murmur - GI/Abdominal Exam GI & Abdominal Exam: Soft - Extremities Exam Extremities Exam: Pedal Edema - Neurological Exam Neurological Exam: Alert, Oriented x3 Assessment and Plan - Assessment and Plan (Free Text) Assessment: chf,diastolic,mr,tr,a,fib.ct medical rx. thanks, will sign off.
--- NOTE | 2018-01-02 12:50 | CARD ---
APPROVED REPORT Date of service: 01/01/2018 EXAM: Two-dimensional and M-mode echocardiogram with Doppler and color Doppler. Other Information Quality : GoodRhythm : INDICATION Dizziness and Vertigo Dyspnea Congestive Heart Failure 2D DIMENSIONS IVSd1.3 (0.7-1.1cm)LVDd4.5 (3.9-5.9cm) LVOT Diameter2.2 (1.8-2.4cm)PWd1.4 (0.7-1.1cm) LVDs2.8 (2.5-4.0cm)FS (%) 38.8 % LVEF (%)69.2 (>50%) M-Mode DIMENSIONS Left Atrium (MM)5.87 (2.5-4.0cm)IVSd1.77 (0.7-1.1cm) Aortic Root3.61 (2.2-3.7cm)LVDd4.92 (4.0-5.6cm) Aortic Cusp Exc.1.26 (1.5-2.0cm)PWd1.67 (0.7-1.1cm) FS (%) 33 %LVDs3.30 (2.0-3.8cm) LVEF (%)61 (>50%) Mitral Valve MV E Crmuunyn667.3cm/sMV A Yqyhpwbe76.6cm/sE/A ratio3.2 TDI E/Lateral E'0.0E/Medial E'0.0 Tricuspid Valve TR Peak [id number]/sTR Peak [id number] LEFT VENTRICLE The left ventricle is normal size. There is mild to moderate concentric left ventricular hypertrophy. Left ventricle systolic function is normal. The Ejection Fraction is 65-70%. There is normal LV segmental wall motion. The left ventricular diastolic function is normal. RIGHT VENTRICLE The right ventricle is normal size. There is normal right ventricular wall thickness. The right ventricular systolic function is normal. ATRIA The left atrium size is normal. The right atrium size is normal. The discontinuity of the interatrial septum is suggestive of an atrial septal defect versus artifact. Suggest GABRIELA if ASD is strongly suspected. AORTIC VALVE The aortic valve is normal in structure. No aortic regurgitation is present. There is no aortic valvular stenosis. MITRAL VALVE The mitral valve is normal in structure. There is no evidence of mitral valve prolapse. There is no mitral valve stenosis. Mitral regurgitation is mild. TRICUSPID VALVE The tricuspid valve is normal in structure. There is mild tricuspid regurgitation. Right ventricular systolic pressure is estimated at 50-60 mmHg. There is moderate pulmonary hypertension. PULMONIC VALVE The pulmonic valve is not well visualized. There is mild pulmonic valvular regurgitation. GREAT VESSELS The aortic root is normal in size. PERICARDIAL EFFUSION There is no significant pericardial effusion. <Conclusion> Left ventricle systolic function is normal. The Ejection Fraction is 65-70%. Hypertensive heart disease. The discontinuity of the interatrial septum is suggestive of an atrial septal defect versus artifact. Suggest GABRIELA if ASD is strongly suspected. No aortic regurgitation is present. Mitral regurgitation is mild. There is mild tricuspid regurgitation. There is moderate pulmonary hypertension. There is mild pulmonic valvular regurgitation.
[2018-01-02 15:48] VITALS: BP 144/84; PULSE 82; RESP 20; TEMP 97.8; O2SAT 98
--- NOTE | 2018-01-02 21:27 | CARD ---
APPROVED REPORT Date of service: 12/31/2017 EKG Measurement Heart [id number] <Conclusion> Atrial fibrillation Nonspecific T wave abnormality Abnormal ECG
--- NOTE | 2018-01-02 23:33 | CP.PCM.PN ---
Subjective - Date & Time of Evaluation Date of Evaluation: 01/02/18 Time of Evaluation: 18:35 - Subjective Subjective: patient seen and examined Lying comfortably in no respiratory distress complaining of nausea Afebrile Objective - Vital Signs/Intake and Output Vital Signs (last 24 hours): Temp Pulse Resp BP Pulse Ox 97.8 F 82 20 144/84 98 01/02/18 15:47 01/02/18 15:47 01/02/18 15:47 01/02/18 15:47 01/02/18 15:47 - Labs Labs: 01/01/18 07:48 01/01/18 07:48 PT 11.9 SECONDS (9.7-12.2) 12/30/17 14:05 INR 1.1 12/30/17 14:05 APTT 36 SECONDS (21-34) H 12/30/17 14:05
--- NOTE | 2018-01-02 23:34 | CP.PCM.DIS ---
Provider - Provider Date of Admission: 12/30/17 15:27 Attending physician: Brent Lara MD Time Spent in preparation of Discharge (in minutes): 46 Hospital Course - Lab Results Lab Results: Most Recent Lab Values WBC 10.2 K/uL (4.8-10.8) 01/01/18 07:48 RBC 3.93 Mil/uL (3.80-5.20) 01/01/18 07:48 Hgb 9.8 g/dL (11.0-16.0) L 01/01/18 07:48 Hct 31.0 % (34.0-47.0) L 01/01/18 07:48 MCV 78.9 fL (81.0-99.0) L 01/01/18 07:48 MCH 24.9 pg (27.0-31.0) L 01/01/18 07:48 MCHC 31.6 g/dL (33.0-37.0) L 01/01/18 07:48 RDW 15.7 % (11.5-14.5) H 01/01/18 07:48 Plt Count 217 K/uL (130-400) 01/01/18 07:48 MPV 8.0 fL (7.2-11.7) 01/01/18 07:48 Neut % (Auto) 61.3 % (50.0-75.0) 12/30/17 14:05 Lymph % (Auto) 26.5 % (20.0-40.0) 12/30/17 14:05 Tate % (Auto) 6.0 % (0.0-10.0) 12/30/17 14:05 Eos % (Auto) 5.6 % (0.0-4.0) H 12/30/17 14:05 Baso % (Auto) 0.6 % (0.0-2.0) 12/30/17 14:05 Neut # (Auto) 5.0 K/uL (1.8-7.0) 12/30/17 14:05 Lymph # (Auto) 2.2 K/uL (1.0-4.3) 12/30/17 14:05 Tate # (Auto) 0.5 K/uL (0.0-0.8) 12/30/17 14:05 Eos # (Auto) 0.5 K/uL (0.0-0.7) 12/30/17 14:05 Baso # (Auto) 0.0 K/uL (0.0-0.2) 12/30/17 14:05 PT 11.9 SECONDS (9.7-12.2) 12/30/17 14:05 INR 1.1 12/30/17 14:05 APTT 36 SECONDS (21-34) H 12/30/17 14:05 D-Dimer, Quantitative 463 ng/mlDDU (0-243) H 12/30/17 14:05 Puncture Site Lr 12/30/17 14:05 pCO2 40 mm/Hg (35-45) 12/30/17 14:05 pO2 73 mm/Hg (80-100) L 12/30/17 14:05 HCO3 24.9 mmol/L (21-28) 12/30/17 14:05 ABG pH 7.40 (7.35-7.45) 12/30/17 14:05 ABG Total CO2 26.0 mmol/L (22-28) 12/30/17 14:05 ABG O2 Saturation 95.9 % (95-98) 12/30/17 14:05 ABG Base Excess 0 mmol/L (-2.0-3.0) 12/30/17 14:05 Alphonse Test P 12/30/17 14:05 ABG Potassium 4.2 mmol/L (3.6-5.2) 12/30/17 14:05 A-a O2 Difference 27.0 mm/Hg 12/30/17 14:05 Respiratory Index 0.4 12/30/17 14:05 Sodium 141.0 mmol/l (132-148) 12/30/17 14:05 Chloride 108.0 mmol/L (98-107) H 12/30/17 14:05 Glucose 106 mg/dl (65-105) H 12/30/17 14:05 Lactate 2.1 mmol/L (0.7-2.1) 12/30/17 14:05 FiO2 21.0 % 12/30/17 14:05 Sodium 140 mmol/L (132-148) 01/01/18 07:48 Potassium 4.5 mmol/L (3.6-5.2) 01/01/18 07:48 Chloride 105 mmol/L (98-107) 01/01/18 07:48 Carbon Dioxide 26 mmol/L (22-30) 01/01/18 07:48 Anion Gap 14 (10-20) 01/01/18 07:48 BUN 20 mg/dL (7-17) H 01/01/18 07:48 Creatinine 1.0 mg/dL (0.7-1.2) 01/01/18 07:48 Est GFR ( Amer) > 60 01/01/18 07:48 Est GFR (Non-Af Amer) 55 01/01/18 07:48 POC Glucose (mg/dL) 156 mg/dL (65-110) H 01/02/18 11:04 Random Glucose 134 mg/dL (65-105) H 01/01/18 07:48 Calcium 9.1 mg/dl (8.6-10.4) 01/01/18 07:48 Magnesium 1.3 mg/dL (1.6-2.3) L 01/01/18 07:48 Total Bilirubin 0.5 mg/dL (0.2-1.3) 12/30/17 14:05 AST 15 U/L (14-36) 12/30/17 14:05 ALT 22 U/L (9-52) 12/30/17 14:05 Alkaline Phosphatase 75 U/L (38-126) 12/30/17 14:05 Total Creatine Kinase 39 U/L (30-135) 12/31/17 01:10 CK-MB (Mass) 0.39 ng/mL (0.0-3.38) 12/31/17 01:10 Troponin I < 0.0120 ng/mL (0.00-0.120) 12/31/17 01:10 NT-Pro-B Natriuret Pep 801 pg/mL (0-900) 12/30/17 14:05 Total Protein 7.2 g/dL (6.3-8.3) 12/30/17 14:05 Albumin 3.8 g/dL (3.5-5.0) 12/30/17 14:05 Globulin 3.4 gm/dL (2.2-3.9) 12/30/17 14:05 Albumin/Globulin Ratio 1.1 (1.0-2.1) 12/30/17 14:05 Arterial Blood Potassium 4.2 mmol/L (3.6-5.2) 12/30/17 14:05 Urine Color Yellow (YELLOW) 01/02/18 02:28 Urine Clarity Clear (Clear) 01/02/18 02:28 Urine pH 5.0 (5.0-8.0) 01/02/18 02:28 Ur Specific [place] 1.013 (1.003-1.030) 01/02/18 02:28 Urine Protein Negative mg/dL (NEGATIVE) 01/02/18 02:28 Urine Glucose (UA) Normal mg/dL (Normal) 01/02/18 02:28 Urine Ketones Negative mg/dL (NEGATIVE) 01/02/18 02:28 Urine Blood Negative (NEGATIVE) 01/02/18 02:28 Urine Nitrate Negative (NEGATIVE) 01/02/18 02:28 Urine Bilirubin Negative (NEGATIVE) 01/02/18 02:28 Urine Urobilinogen Normal mg/dL (0.2-1.0) 01/02/18 02:28 Ur Leukocyte Esterase Neg Mildred/uL (Negative) 01/02/18 02:28 Urine WBC (Auto) < 1 /hpf (0-5) 01/02/18 02:28 Urine RBC (Auto) < 1 /hpf (0-3) 01/02/18 02:28 Ur Squamous Epith Cells 2 /hpf (0-5) 01/02/18 02:28 Urine Bacteria Rare (<OCC) 12/30/17 15:27 - Hospital Course Hospital Course: patient seen and examined Lying comfortably in no respiratory distress complaining of nausea Afebrile Discharge Exam - Head Exam Head Exam: NORMOCEPHALIC Discharge Plan - Discharge Medications Prescriptions: Albuterol 0.083% [Albuterol 0.083% Inhal Destinee (2.5 mg/3 ml) UD] 2.5 mg IH Q6 PRN 30 Days neb PRN Reason: Shortness Of Breath Rosuvastatin Calcium [Crestor] 10 mg PO HS #30 tab Furosemide [Lasix] 20 mg PO DAILY #20 tablet Albuterol HFA [Ventolin HFA 90 mcg/actuation (8 g)] 2 puff IH Q4 PRN #2 unit PRN Reason: Wheezing - Follow Up Plan Condition: GOOD Disposition: HOME/ ROUTINE Instructions: Heart Healthy Diet, Atrial Fibrillation (DC), Heart Failure, Adult (DC), Pulmonary Hypertension, Adult (DC), Heart Failure Exercise Guide Additional Instructions: Please follow up with Dr. Lara office in 1 week Please follow up with Dr. Love office in 2 weeks- call an make appointment Please continue medication as per medication reconciliation Please fruit or nut picker medication from [facility] Por favor, siga con la oficina del Dr. Lara en 1 semana Por favor, ronaldo un seguimiento con la oficina del Dr. Love en 2 semanas, llame a jeffrey zeb Por favor contine con la medicacin segn la conciliacin de la medicacin Por favor, recoja los medicamentos de [facility] Referrals: Bang Love MD [Staff Provider] - Brent Lara MD [Staff Provider] - Nolberto Blake MD [Staff Provider] -
== END 2018-01-02 16:15 | disposition home or self-care (01) | DRG 292 ==
LOC: C.ER 12:05 → C.9E 15:27 → C.5S 18:16
PROVIDERS: ADMIT Internal Medicine; ATTEND Internal Medicine
DX: I11.0 Hypertensive heart disease with heart failure (principal); I50.30 Unspecified diastolic (congestive) heart failure; J45.901 Unspecified asthma with (acute) exacerbation; I27.21 Secondary pulmonary arterial hypertension; I48.2 Chronic atrial fibrillation; J44.9 Chronic obstructive pulmonary disease, unspecified; E66.9 Obesity, unspecified; E11.9 Type 2 diabetes mellitus without complications; E27.8 Other specified disorders of adrenal gland; Z79.01 Long term (current) use of anticoagulants; Z87.891 Personal history of nicotine dependence; Z90.49 Acquired absence of other specified parts of digestive tract; Z90.710 Acquired absence of both cervix and uterus

== ENCOUNTER 2018-06-28 14:02 | Emergency (ER) | payer MEDICARE, MEDICAID ==
[2018-06-28 14:17] VITALS: BMI 46.5
[2018-06-28 14:23] VITALS: RESP 20
--- NOTE | 2018-06-28 14:37 | C.PDOC ---
History Of Present Illness 67 year old female with a medical hx of asthma, diabetes, and hypertension presents to the ED for evaluation of dizziness and fall occurring today at 4am. The patient reports she woke up, on her way to the bathroom felt dizzy, and fell hitting the left side of her buttock. She went back to sleep and woke up a few hours later feeling dizzy again prompting ED visit. The patient states having prior multiple episodes of dizziness, today was the first time she fell. The patient also reports having a 45min MRI 1 day ago with her pain management/spine doctor, notes she did not feel well during the MRI. Recently she has been gaining weight, full of fluids with edema. She denies fever, chills, headache, head injuries, LOC, chest pain, cough, abdominal pain, nausea, vomiting, and any other associated symptoms. Time Seen by Provider: 06/28/18 14:20 Chief Complaint (Nursing): Shortness Of Breath History Per: Patient History/Exam Limitations: no limitations Onset/Duration Of Symptoms: Days Current Symptoms Are (Timing): Still Present Recent travel outside of the [place]: No Past Medical History Reviewed: Historical Data, Nursing Documentation, Vital Signs Vital Signs: Last Vital Signs Temp 97.6 F 06/28/18 14:17 Pulse 98 H 06/28/18 14:17 Resp 20 06/28/18 14:17 BP 136/79 06/28/18 14:17 Pulse Ox 97 06/28/18 14:17 - Medical History PMH: Asthma, Atrial Fibrillation, Bronchitis, Diabetes, HTN, Hypercholesterolemia Denies: Chronic Kidney Disease Surgical History: Appendectomy Family History: States: Unknown Family Hx - Social History Hx Tobacco Use: No (Quit years ago) Hx Alcohol Use: No Hx Substance Use: No - Immunization History Hx Tetanus Toxoid Vaccination: Yes Hx Influenza Vaccination: Yes Hx Pneumococcal Vaccination: Yes Review Of Systems Constitutional: Negative for: Fever, Chills Cardiovascular: Negative for: Chest Pain Gastrointestinal: Negative for: Nausea, Vomiting, Abdominal Pain Neurological: Positive for: Dizziness. Negative for: Headache, Other ((-) LOC. ) Physical Exam - Physical Exam Appears: Non-toxic, No Acute Distress, Other (cooperative. morbidly obese.) Skin: Warm, Dry Head: Atraumatic, Normacephalic Eye(s): bilateral: Normal Inspection Oral Mucosa: Moist Neck: Normal ROM, Supple Chest: Symmetrical, No Deformity Cardiovascular: Rhythm Regular, No Murmur Respiratory: Rales (bibasilar rales.) Gastrointestinal/Abdominal: Normal Exam, Soft, No Tenderness Back: Other (buttock: (+) tender to the left-side of the buttock. (-) contusion. ) Pelvic: Other Extremity: No Tenderness, No Calf Tenderness, No Deformity, Other (pitting edema up to the knees bilaterally.) Neurological/Psych: Oriented x3, Normal Speech, Normal Cognition ED Course And Treatment - Laboratory Results Result Diagrams: 06/28/18 14:55 06/28/18 14:55 ECG Rhythm: Atrial Fibrillation Rate From EC O2 Sat by Pulse Oximetry: 97 (RA) Pulse Ox Interpretation: Normal - Other Rad CXR X-Ray: Viewed By Me, Read By Radiologist Interpretation: Findings: Moderate venous congestion. Bibasilar airspace opacities. Cardiomegaly. Enlarged ectatic aorta with calcification at the aortic knob. Degenerative changes in the spine. Impression: Moderate venous congestion. Bibasilar airspace opacities. Cardiomegaly. Medical Decision Making Medical Decision Making: Initial plan: -EKG -Blood sent -CXR -Antivert -Urinalysis Progress/Update: Hx of afib, prior EKG with afib. Pt states feeling better. Pt stable for discharge home. Disposition - Disposition Disposition: HOME/ ROUTINE Disposition Time: 16:52 Condition: IMPROVED Instructions: Vertigo (a Type of Dizziness) (DC) Forms: [facility] (Irish), General Discharge Instructions - POA Present On Arrival: None - Clinical Impression Clinical Impression: Dizziness - Scribe Statement The provider has reviewed the documentation as recorded by the Scribe (Samia Morales) Provider Attestation: All medical record entries made by the Scribe were at my direction and personally dictated by me. I have reviewed the chart and agree that the record accurately reflects my personal performance of the history, physical exam, medical decision making, and the department course for this patient. I have also personally directed, reviewed, and agree with the discharge instructions and disposition.
[2018-06-28 15:00] LABS: BASO # 0.1 K/uL (0.0-0.2); BASO % 1.2 % (0.0-2.0); EOS # 0.7 K/uL (0.0-0.7); EOS % 7.5 % (0.0-4.0); HEMOGLOBIN 10.4 g/dL (11.0-16.0); LYMPH # 2.3 K/uL (1.0-4.3); LYMPH % 25.1 % (20.0-40.0); MEAN CELL VOLUME 78.7 fL (81.0-99.0); MEAN CORPUSCULAR HEMOGLOBIN 24.4 pg (27.0-31.0); MEAN PLATELET VOLUME 7.5 fL (7.2-11.7); MONO # 0.9 K/uL (0.0-0.8); MONO % 9.2 % (0.0-10.0); NEUT # 5.3 K/uL (1.8-7.0); RBC 4.28 Mil/uL (3.80-5.20); RED CELL DISTRIBUTION WIDTH 16.4 % (11.5-14.5); WHITE BLOOD COUNT 9.3 K/uL (4.8-10.8)
[2018-06-28 15:13] LABS: ALB/GLOB RATIO 1.2 (1.0-2.1); ALBUMIN 4.1 g/dL (3.5-5.0); BLOOD UREA NITROGEN 20 mg/dL (7-17); CALCIUM 9.3 mg/dl (8.6-10.4); GFR NON-AFRICAN AMERICAN > 60
[2018-06-28 15:24] LABS: ALT/SGPT 18 U/L (9-52); AST/SGOT 27 U/L (14-36); B-TYPE NATRIURETIC PEPTIDE 385 pg/mL (0-900)
[2018-06-28 15:37] LABS: BARBITURATES, UR NEGATIVE (NEGATIVE); BENZODIAZEPINES, UR NEGATIVE (NEGATIVE); OPIATES, UR NEGATIVE (NEGATIVE); PHENCYCLIDINE, UR NEGATIVE (NEGATIVE)
[2018-06-28 15:39] LABS: SQUAMOUS EPITHIAL 21 /hpf (0-5); URINE BILIRUBIN NEGATIVE (NEGATIVE); URINE BLOOD NEGATIVE (NEGATIVE); URINE CLARITY Hazy (Clear); URINE COLOR Yellow (YELLOW); URINE GLUCOSE (UA) NORMAL (Normal); URINE LEUKOCYTE ESTERASE NEG Leu/uL (Negative); URINE PROTEIN NEGATIVE (NEGATIVE); URINE UROBILINOGEN NORMAL mg/dL (0.2-1.0)
--- NOTE | 2018-06-28 16:19 | RAD ---
Chest x-ray two views HISTORY: Shortness of breath. Comparison: 12/30/2017 Findings: Moderate venous congestion. Bibasilar airspace opacities. Cardiomegaly. Enlarged ectatic aorta with calcification at the aortic knob. Degenerative changes in the spine. Impression: Moderate venous congestion. Bibasilar airspace opacities. Cardiomegaly.
[2018-06-28 17:27] VITALS: BP 133/78; PULSE 95; TEMP 98.5; O2SAT 100
--- NOTE | 2018-06-30 19:50 | CARD ---
APPROVED REPORT Date of service: 06/28/2018 EKG Measurement Heart [id number] <Conclusion> Atrial fibrillation Abnormal ECG
== END 2018-06-28 17:28 | disposition home or self-care (01) ==
LOC: C.ER 14:02
DX: R42 Dizziness and giddiness (principal)
CPT/HCPCS: 71046; 80053; 81001; 83880; 84484; 85025; 93005; 99285; G0480

== ENCOUNTER 2018-09-07 11:32 | Emergency (ER) | payer OTHER ==
[2018-09-07 11:33] VITALS: BMI 46.5
[2018-09-07 11:38] VITALS: RESP 20
--- NOTE | 2018-09-07 12:00 | C.PDOC ---
History Of Present Illness 68 y/o female presents to the ED complaining of a worsening left shoulder pain for the past week. Patient states she pushed a shopping cart last week and since then, shes had the pain and is unable to lift up her left arm above her head. Patient denies any fall, trauma, weakness, or numbness. Time Seen by Provider: 09/07/18 11:42 Chief Complaint (Nursing): Upper Extremity Problem/Injury History Per: Patient History/Exam Limitations: no limitations Onset/Duration Of Symptoms: Days Current Symptoms Are (Timing): Still Present Past Medical History Reviewed: Historical Data, Nursing Documentation, Vital Signs Vital Signs: Last Vital Signs Temp 97.5 F L 09/07/18 11:35 Pulse 73 09/07/18 11:35 Resp 20 09/07/18 11:35 BP 133/73 09/07/18 11:35 Pulse Ox 98 09/07/18 11:35 - Medical History PMH: Asthma, Atrial Fibrillation, Bronchitis, Diabetes, HTN, Hypercholesterolemia Denies: Chronic Kidney Disease Surgical History: Appendectomy Family History: States: No Known Family Hx - Social History Hx Tobacco Use: No (Quit years ago) Hx Alcohol Use: No Hx Substance Use: No - Immunization History Hx Tetanus Toxoid Vaccination: Yes Hx Influenza Vaccination: Yes Hx Pneumococcal Vaccination: Yes Review Of Systems Except As Marked, All Systems Reviewed And Found Negative. Constitutional: Negative for: Fever, Chills Musculoskeletal: Positive for: Shoulder Pain (Left). Negative for: Arm Pain Neurological: Negative for: Weakness, Numbness Physical Exam - Physical Exam Appears: Non-toxic, No Acute Distress Skin: Warm, Dry Head: Normacephalic Eye(s): bilateral: Normal Inspection Oral Mucosa: Moist Neck: Supple Extremity: Tenderness (over deltoid region), No Deformity, Other (Decreased ROM of left shoulder) Extremity: Bilateral: Normal Color And Temperature Neurological/Psych: Oriented x3, Normal Speech, Normal Motor, Normal Sensation ED Course And Treatment O2 Sat by Pulse Oximetry: 98 (RA) Pulse Ox Interpretation: Normal - Other Rad Left Shoulder XR X-Ray: Read By Radiologist Interpretation: FINDINGS: BONES: Normal. No fracture. JOINTS: Mild osteoarthritic changes.. Glenohumeral and acromioclavicular joints preserved. No osteoarthritis. SOFT TISSUES: Normal. OTHER FINDINGS: None. IMPRESSION: No evidence of acute fracture or dislocation. Medical Decision Making Medical Decision Making: Plan: --L Shoulder XR --Toradol 30 mg IM --Valium 2 mg PO Preliminary reading of shoulder XR, no dislocation or fractures. Disposition - Disposition Referrals: Shola Guevara III, MD [Staff Provider] - Disposition: HOME/ ROUTINE Disposition Time: 12:47 Condition: GOOD Additional Instructions: Please call Dr Guevara's office to make an appointment and continue to use the armling for comfort. Prescriptions: Ibuprofen [Motrin] 600 mg PO Q6 #20 tab Instructions: Shoulder Sprain Forms: [employer] (Nauruan) - Clinical Impression Clinical Impression: Sprain, Shoulder sprain - Scribe Statement The provider has reviewed the documentation as recorded by the Carlyn Medina Provider Attestation: All medical record entries made by the Steveibkady were at my direction and personally dictated by me. I have reviewed the chart and agree that the record accurately reflects my personal performance of the history, physical exam, medical decision making, and the department course for this patient. I have also personally directed, reviewed, and agree with the discharge instructions and disposition.
[2018-09-07 12:51] VITALS: BP 102/66; PULSE 56; TEMP 97.6
--- NOTE | 2018-09-07 13:52 | RAD ---
Date of service: 09/07/2018 PROCEDURE: Radiographs of the Left Shoulder HISTORY: r/o fx COMPARISON: No prior. TECHNIQUE: 3 views obtained. FINDINGS: BONES: Normal. No fracture. JOINTS: Mild osteoarthritic changes.. Glenohumeral and acromioclavicular joints preserved. No osteoarthritis. SOFT TISSUES: Normal. OTHER FINDINGS: None. IMPRESSION: No evidence of acute fracture or dislocation.
[2018-09-07 14:21] VITALS: O2SAT 98
== END 2018-09-07 12:58 | disposition home or self-care (01) ==
LOC: C.ER 11:32
DX: S43.402A Unspecified sprain of left shoulder joint, initial encounter (principal); X50.0XXA Overexertion from strenuous movement or load, initial encounter
CPT/HCPCS: 73030; 96372; 99285; J1885